=== PATIENT | female | born 1955 | race Two or more races ===

== ENCOUNTER 2020-07-13 16:36 | Inpatient (IN) | payer MEDICARE, OTHER ==
[~2020-07-13] VITALS: Ht 157.5 cm; Wt 77.1 kg
[2020-07-13 17:20] VITALS: BP 135/80
--- NOTE | 2020-07-13 17:41 | NUR ---
ED Nurse Note: Walked in from home A/o/4. FStates feeling short of breath for 4 days. Pt said a nurse visited her at home today and checked her SPO2 and it was 88%. She was told to go straight to the ER. She states that her entire family that she lives with has tested positive for COVID. She is resting comfortably on 4 LNC stating that she feels much better with it on. Vital signs stable as documented. labs sent, misty palm sent, ekg done.
[2020-07-13 17:55] LABS: BASOPHILS % (AUTO) 0.7 % (0.0-2.0); EOSINOPHILS % (AUTO) 0.5 % (0.0-3.0); HEMATOCRIT 43.7 % (37.0-47.0); HEMOGLOBIN 14.9 G/DL (12.0-16.0); LYMPHOCYTES % (AUTO) 15.4 % (20.0-45.0); MEAN CORPUSCULAR VOLUME 90 FL (80-99); MONOCYTES % (AUTO) 6.4 % (1.0-10.0); NEUTROPHILS % (AUTO) 77.1 % (45.0-75.0); PLATELET COUNT 395 K/UL (150-450); RED BLOOD COUNT 4.88 M/UL (4.20-5.40); RED CELL DISTRIBUTION WIDTH 13.1 % (11.6-14.8); WHITE BLOOD COUNT 10.1 K/UL (4.8-10.8)
[2020-07-13 18:40] LABS: APPEARANCE,URINE CLEAR; BILIRUBIN, URINE NEGATIVE (NEGATIVE); COLOR,URINE PALE YELLOW; GLUCOSE, URINE (UA) NEGATIVE (NEGATIVE); KETONES,URINE NEGATIVE (NEGATIVE); LEUKOCYTE ESTERASE ,URINE NEGATIVE (NEGATIVE); NITRITE,URINE NEGATIVE (NEGATIVE); PH,URINE 8 (4.5-8.0); PROTEIN,URINE NEGATIVE (NEGATIVE); UROBILINOGEN,URINE NORMAL MG/DL (0.0-1.0)
[2020-07-13 18:48] LABS: ANION GAP 9 mmol/L (5-15); BLOOD UREA NITROGEN 11 mg/dL (7-18); CALCIUM 8.8 MG/DL (8.5-10.1); CARBON DIOXIDE 28 MMOL/L (21-32); CHLORIDE 102 MMOL/L (98-107); CREATININE 0.6 MG/DL (0.55-1.30); POTASSIUM 4.8 MMOL/L (3.5-5.1); SODIUM 139 MMOL/L (136-145)
[2020-07-13 19:05] LABS: ALANINE AMINOTRANSFERASE 63 U/L (12-78); ALBUMIN 2.9 G/DL (3.4-5.0); ALBUMIN/GLOBULIN RATIO 0.7 (1.0-2.7); ALKALINE PHOSPHATASE 111 U/L (46-116); ASPARTATE AMINO TRANSFERASE 48 U/L (15-37); BILIRUBIN,TOTAL 0.5 MG/DL (0.2-1.0); FERRITIN 703 NG/ML (8-388); LACTATE DEHYDROGENASE 509 U/L (81-234)
--- NOTE | 2020-07-13 19:06 | NUR ---
HAND-OFF: Report given to Saray MEDINA.
[2020-07-13] MEDS ORDERED: dexAMETHasone 10mg/ml Inj IV ONE (19:15)
[2020-07-13] MEDS ORDERED: Enoxaparin 40mg Inj SUBQ ONE (19:15)
--- NOTE | 2020-07-13 19:26 | NUR ---
ED Nurse Note: RT at bedside providing breathing treatment. Patient in stable condition, provided with extra blankets, VSS. No acute distress noted.
[2020-07-13 19:27] VITALS: BP 174/89
[2020-07-13] MEDS: Albuterol/Ipratropium 3ml neb HHN SCH (19:28)
[2020-07-13] MEDS ORDERED: cefTRIAXone 1 GM in NS 55 ML IVPB ONE (20:00)
[2020-07-13] MEDS ORDERED: Azithromycin 500 MG in NS 275 ML IV ONE (20:00)
[2020-07-13 20:30] VITALS: BP 136/61
--- NOTE | 2020-07-13 21:55 | NUR ---
ED Nurse Note: Report given to ADAM Sommer.
[2020-07-13 22:00] VITALS: BP 128/64
--- NOTE | 2020-07-13 22:05 | NUR ---
TRANSFER TO FLOOR: Patient transferred to med surg as ordered, per ERMD. Report given to ADAM Sommer. Patient transported in stable condition along with belongings.
--- NOTE | 2020-07-13 22:14 | Emergency Room Report ---
History of Present Illness General Chief Complaint: Dyspnea/Respdistress Source: Patient Present Illness HPI 64-year-old female presents for evaluation. Referred from PMD clinic. Cough and congestion x1 week. Family members are Covid positive. O2 sat 80s in triage. History of asthma. Denies chest pain. No other aggravating relieving factors. Denies any other associated symptoms Allergies: Coded Allergies: No Known Allergies (Unverified , 07/13/20) COVID-19 Screening Contact w/high risk pt: No Experienced COVID-19 symptoms?: Yes COVID-19 Testing performed WELFARE SPECIALIST: No Patient History Past Medical History: HTN, COPD Past Surgical History: none Pertinent Family History: none Social History: Denies: smoking, alcohol use, drug use Now: No Immunizations: UTD Reviewed Nursing Documentation: PMH: Agreed; PSxH: Agreed Nursing Documentation-PMH Past Medical History: No Stated History Hx Hypertension: Yes Review of Systems All Other Systems: negative except mentioned in HPI Physical Exam Vital Signs Date Time Temp Pulse Resp B/P (MAP) Pulse Ox O2 Delivery O2 Flow Rate FiO2 07/13/20 17:11 99.0 88 30 149/85 (106) 85 Room Air 07/13/20 17:20 4.0 07/13/20 19:28 36 Sp02 EP Interpretation: reviewed, normal General Appearance: no apparent distress, alert, GCS 15, non-toxic Head: normocephalic, atraumatic Eyes: bilateral eye normal inspection, bilateral eye PERRL ENT: hearing grossly normal, normal pharynx, no angioedema, normal voice Neck: full range of motion, supple/symm/no masses Respiratory: chest non-tender, speaking full sentences, wheezing Cardiovascular #1: regular rate, rhythm, no edema Cardiovascular #2: 2+ carotid (R), 2+ carotid (L), 2+ radial (R), 2+ radial (L), 2+ dorsalis pedis (R), 2+ dorsalis pedis (L) Gastrointestinal: normal bowel sounds, non tender, soft, non-distended, no guarding, no rebound Rectal: deferred Genitourinary: normal inspection, no CVA tenderness Musculoskeletal: back normal, normal range of motion, gait/station normal, non- tender Neurologic: alert, motor strength/tone normal, oriented x3, sensory intact, responsive, speech normal Psychiatric: judgement/insight normal, memory normal, mood/affect normal, no suicidal/homicidal ideation Reflexes: 3+ bicep (R), 3+ bicep (L), 3+ tricep (R), 3+ tricep (L), 3+ knee (R), 3+ knee (L) Skin: no rash Lymphatic: no adenopathy Procedures Critical Care Time Critical Care Time i. I feel this is a highly complex case requiring extensive working including EKG/Rhythm strip, Xray/CT/US, Blood/urine lab work, repeat exams while in ED, and administration of strong opiates/narcotics for pain control, admission to hospital or close patient follow up. Total time: 45 min bedside evaluation and treatment excludes procedures (EKG). Reason for critical care: respiratory distress, Covid Possible complications: hypotension, hypertension, VT, shock, arrhythmias, metabolic acidosis, end organ damage, respiratory failure. Interventions: Labs, EKG, chest x-ray, cardiac monitoring, rapid Covid, nebulizer treatments, antibiotics, dexamethasone, Lovenox Course: Patient presenting with shortness of breath. O2 sat 80s. Chest x-ray shows bilateral patchy infiltrates. Covid positive. Given breathing treatments. Respiratory status improved. O2 sats improved. Given antibiotics. Given dexamethasone and Lovenox Consultations: nursing staff, EMS, family Performed by: Dr Parsons Tolerated well condition = serious j. because of unstable vital signs this patient had a condition that could potentially threaten life or limb. I feel this is a critical patient who required my full attention while patient was considered critical. Total Critic al Care Time excluding procedures was greater than 45 minutes Medical Decision Making Diagnostic Impression: Primary Impression: Respiratory distress Additional Impression: COVID-19 ER Course Hospital Course 64-year-old female presents with shortness of breath cough. Low O2 sat Differential diagnoses include: Pneumonia, CHF exacerbation, pneumothorax, fluid overload Clinical course Patient placed on stretcher. In isolation. I wore full PPE. 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 After initial history and physical, I ordered labs, IV fluids, EKG, chest x-ray, blood cultures, UA. Patient placed on oxygen with O2 sats improved. Rapid Covid positive Breathing treatment started Labs -leukocytosis noted, hemoglobin/hematocrit stable, electrolytes okay, inflammatory markers elevated, D-dimer EKGnormal sinus rhythm no acute ischemic changes interpreted by me CXR -bilateral patchy opacities Given broad-spectrum antibiotics. O2 sats improved after breathing treatments. Given dexamethasone. Given Lovenox. Case discussed with Dr. Guerin and he agreed to the patient to his service for further care and support I feel this is a highly complex case requiring extensive working including EKG/Rhythm strip, Xray/CT/US, Blood/urine lab work, repeat exams while in ED, and administration of strong opiates/narcotics for pain control, admission to hospital or close patient follow up. Diagnosis -respiratory distress, COVID 19 Patient admitted to telemetry in serious condition Laboratory Tests Test 07/13/20 17:27 07/13/20 18:30 White Blood Count 10.1 K/UL (4.8-10.8) Red Blood Count 4.88 M/UL (4.20-5.40) Hemoglobin 14.9 G/DL (12.0-16.0) Hematocrit 43.7 % (37.0-47.0) Mean Corpuscular Volume 90 FL (80-99) Mean Corpuscular Hemoglobin 30.6 PG (27.0-31.0) Mean Corpuscular Hemoglobin Concent 34.2 G/DL (32.0-36.0) Red Cell Distribution Width 13.1 % (11.6-14.8) Platelet Count 395 K/UL (150-450) Mean Platelet Volume 5.3 FL (6.5-10.1) L Neutrophils (%) (Auto) 77.1 % (45.0-75.0) H Lymphocytes (%) (Auto) 15.4 % (20.0-45.0) L Monocytes (%) (Auto) 6.4 % (1.0-10.0) Eosinophils (%) (Auto) 0.5 % (0.0-3.0) Basophils (%) (Auto) 0.7 % (0.0-2.0) Prothrombin Time 10.7 SEC (9.30-11.50) Prothromb Time International Ratio 1.0 (0.9-1.1) Activated Partial Thromboplast Time 26 SEC (23-33) D-Dimer 1.18 mg/L FEU (0.00-0.49) H Sodium Level 139 MMOL/L (136-145) Potassium Level 4.8 MMOL/L (3.5-5.1) Chloride Level 102 MMOL/L (98-107) Carbon Dioxide Level 28 MMOL/L (21-32) Anion Gap 9 mmol/L (5-15) Blood Urea Nitrogen 11 mg/dL (7-18) Creatinine 0.6 MG/DL (0.55-1.30) Estimat Glomerular Filtration Rate > 60 mL/min (>60) Glucose Level 98 MG/DL (74-106) Lactic Acid Level 2.00 mmol/L (0.4-2.0) Calcium Level 8.8 MG/DL (8.5-10.1) Ferritin 703 NG/ML (8-388) H Total Bilirubin 0.5 MG/DL (0.2-1.0) Aspartate Amino Transf (AST/SGOT) 48 U/L (15-37) H Alanine Aminotransferase (ALT/SGPT) 63 U/L (12-78) Alkaline Phosphatase 111 U/L (46-116) Lactate Dehydrogenase 509 U/L (81-234) H Troponin I 0.004 ng/mL (0.000-0.056) C-Reactive Protein, Quantitative 8.0 mg/dL (0.00-0.90) H Pro-B-Type Natriuretic Peptide 220 pg/mL (0-125) H Total Protein 7.3 G/DL (6.4-8.2) Albumin 2.9 G/DL (3.4-5.0) L Globulin 4.4 g/dL Albumin/Globulin Ratio 0.7 (1.0-2.7) L Lipase 154 U/L (73-393) Urine Color Pale yellow Urine Appearance Clear Urine pH 8 (4.5-8.0) Urine Specific [place] 1.010 (1.005-1.035) Urine Protein Negative (NEGATIVE) Urine Glucose (UA) Negative (NEGATIVE) Urine Ketones Negative (NEGATIVE) Urine Blood 1+ (NEGATIVE) H Urine Nitrite Negative (NEGATIVE) Urine Bilirubin Negative (NEGATIVE) Urine Urobilinogen Normal MG/DL (0.0-1.0) Urine Leukocyte Esterase Negative (NEGATIVE) Urine RBC 2-4 /HPF (0 - 2) H Urine WBC 0-2 /HPF (0 - 2) Urine Squamous Epithelial Cells Moderate /LPF (NONE/OCC) H Urine Bacteria Few /HPF (NONE) EKG Diagnostic Results Troponin ordered: Yes Rate: normal Rhythm: NSR ST Segments: no acute changes ASA given to the pt in ED: No Rhythm Strip Diag. Results EP Interpretation: yes Rhythm: NSR, no PVC's, no ectopy Chest X-Ray Diagnostic Results Chest X-Ray Diagnostic Results : Chest X-Ray Ordered: Yes # of Views/Limited/Complete: 1 View Indication: Shortness of Breath EP Interpretation: Yes Interpretation: no pneumothorax, other - bilateral patchy opacities Impression: Other - Covid pneumonia Electronically Signed by: Electronically signed by Ryder Parsons MD Last Vital Signs Date Time Temp Pulse Resp B/P (MAP) Pulse Ox O2 Delivery O2 Flow Rate FiO2 07/13/20 20:30 88 19 136/61 96 Nasal Cannula 4.0 07/13/20 19:28 36 07/13/20 17:20 99.0 Status: improved Disposition: ADMITTED INPATIENT Condition: Serious Scripts No Active Prescriptions or Reported Meds Referrals: Gregory Guerin MD (PCP) Ryder Parsons MD Jul 13, 2020 22:14
--- NOTE | 2020-07-13 22:15 | NUR ---
NURSES NOTE: Pt received to 4E at 2150 from ER. No outward s/s of distress noted. Breathing pattern is even and unlabored on 4 L nasal canula. A/OX4, patient denies discomfort or pain at this time. Head to toe assessment performed. Skin is clear and intact. L AC 20g IV is intact, patent, infusing antibiotic by gravity without incident. Phone call placed to receive admitting orders. Waiting for a call back. Patient oriented to room. Bed at lowest level. Call light within reach. Pt will continue to be monitored.
[2020-07-14] VITALS: BP 142/71
[2020-07-14 04:00] VITALS: BP 144/72
--- NOTE | 2020-07-14 07:42 | NUR ---
NURSE HAND-OFF: Important Events on Shift: [Was not able to process Remdesivir. Must be processed by infectious disease consult Dr. Dr Guerin made aware. ] Patient Status: [stable] Diet: [regular] Pending Orders: [none] Pending Results/Labs:[none] Pending MD notification:[none] Latest Vital Signs: Temperature 98.7 , Pulse 90 , B/P 144 /72 , Respiratory Rate 18 , O2 SAT 97 , Nasal Cannula, O2 Flow Rate 4.0 . Vital Sign Comment: [wnl] Latest Adame Fall Score: 20 Fall Risk: Low Risk Safety Measures: Call light Within Reach, Bed Alarm , Side Rails Side Rails x2, Bed position Low and Locked. Fall Precautions: Yellow Socks Patient Fall Education Report given to [ADAM Duncan].
[2020-07-14 08:00] VITALS: BP 153/84
--- NOTE | 2020-07-14 08:12 | NUR ---
NURSE NOTES: Patient awake and alert respirations unlabored.02on at 4L N/C.patient state she is feeling better.sitting up in bed and eating breakfast.Call light within reach.
[2020-07-14] MEDS: Enoxaparin 30mg Inj SUBQ SCH ×2 (08:34→20:24)
--- NOTE | 2020-07-14 09:28 | Diagnostic Imaging Report ---
Indication: Shortness of breath Technique: XRAY Chest 1v Comparison: None Findings: Patchy bilateral infiltrates are noted with a dominant peripheral distribution. There is no pleural effusion or pneumothorax. Heart appears enlarged. Mediastinal contours are sharp. No acute osseous anomaly. IMPRESSION: Patchy bilateral infiltrates concerning for multifocal pneumonia, particularly viral pneumonia. Clinical correlation and follow-up recommended
--- NOTE | 2020-07-14 10:02 | NUR ---
RADIOLOGY NOTE: PORTABLE CHEST X-RAY COMPLETED AT 0915 HRS. FA
[2020-07-14 10:06] LABS: BASOPHILS % (AUTO) 0.5 % (0.0-2.0); EOSINOPHILS % (AUTO) 0.1 % (0.0-3.0); HEMATOCRIT 36.8 % (37.0-47.0); HEMOGLOBIN 13.1 G/DL (12.0-16.0); LYMPHOCYTES % (AUTO) 12.9 % (20.0-45.0); MEAN CORPUSCULAR VOLUME 86 FL (80-99); MONOCYTES % (AUTO) 4.9 % (1.0-10.0); NEUTROPHILS % (AUTO) 81.6 % (45.0-75.0); PLATELET COUNT 394 K/UL (150-450); RED BLOOD COUNT 4.25 M/UL (4.20-5.40); RED CELL DISTRIBUTION WIDTH 14.6 % (11.6-14.8); WHITE BLOOD COUNT 7.8 K/UL (4.8-10.8)
[2020-07-14 10:41] LABS: ANION GAP 11 mmol/L (5-15); BLOOD UREA NITROGEN 12 mg/dL (7-18); CALCIUM 8.9 MG/DL (8.5-10.1); CARBON DIOXIDE 23 MMOL/L (21-32); CHLORIDE 105 MMOL/L (98-107); CREATININE 0.7 MG/DL (0.55-1.30); POTASSIUM 3.9 MMOL/L (3.5-5.1); SODIUM 139 MMOL/L (136-145)
[2020-07-14 12:00] VITALS: BP 150/70
--- NOTE | 2020-07-14 12:00 | Consultation ---
DATE OF CONSULTATION: 07/14/2020 INFECTIOUS DISEASES CONSULTATION CONSULTING PHYSICIAN: Laura Wallace MD. REFERRING PHYSICIAN: Gregory Guerin MD. REASON FOR CONSULTATION: COVID-19 pneumonia. HISTORY OF PRESENTING ILLNESS: This is a 64-year-old lady with history of hypertension, asthma, who comes in with cough and shortness of breath. She denies any fever or chills. She was found to be COVID-19 positive. Her family members are also COVID-19 positive. An Infectious Diseases consultation has been obtained for antibiotics. PAST MEDICAL HISTORY: 1. History of hypertension. 2. Asthma. SOCIAL HISTORY: She does not smoke. She drinks alcohol socially. No history of drug use. FAMILY HISTORY: Noncontributory. REVIEW OF SYSTEMS: RESPIRATORY: No fever or chills. She has cough. She has shortness of breath. No chest pain. CARDIAC: No chest pain. No palpitation. No dizziness. No syncope. GASTROINTESTINAL: No nausea. No vomiting. No abdominal pain or diarrhea. MUSCULOSKELETAL: She denies any headaches or body pain. MEDICATIONS: As an inpatient, she is on dexamethasone, Mylanta, Tylenol, enoxaparin, Protonix. ALLERGIES: No known drug allergies. PHYSICAL EXAMINATION: VITAL SIGNS: Temperature of 98.7, T-max of 99, pulse of 90, respiratory rate 18, blood pressure 144/72, O2 saturation of 97% on 4 liters of oxygen. Examination deferred due to COVID-19. LABORATORY DATA: White count 7.8, hemoglobin 13.1, hematocrit 36.8, MCV 86, platelet count 394. Sodium 139, potassium 3.9, chloride 105, bicarb 23, BUN 12, creatinine 0.7, glucose 161, calcium 8.9. Total bilirubin 0.5. AST 48, ALT 63, alkaline phosphatase 111. LDH 509. Troponin 0.004. C-reactive protein of 8. Total protein 7.3, albumin 2.9, lipase of 154. UA is showing 0 to 2 white cells. COVID-19 test is positive. Chest x-ray showing patchy bilateral infiltrates concerning for multifocal pneumonia. ASSESSMENT: This is a 64-year-old lady with history of hypertension and asthma, who comes in with cough and shortness of breath and is found to have, 1. COVID-19 pneumonia. 2. She is on 4 liters of oxygen with 97% saturation. 3. Hypertension. 4. Asthma. PLAN: 1. Continue Decadron. She is on day #2. 2. We will start the patient on remdesivir. 3. Continue isolation. 4. We will follow up the patient clinically. I would like to thank, Dr. Guerin for this consultation. Laura Wallace M.D. DR: GOMEZ JOB#: [id number] CC: Gregory Guerin MD.; Fax#: [phone]
--- NOTE | 2020-07-14 13:11 | History & Physical ---
History and Physical History & Physicial 64-year-old lady with history of hypertension, asthma, presents with cough and shortness of breath. She denies any fever or chills. She was found to be COVID-19 positive. She was noted to be hypoxemic by the home health nurse and was directed to the ER Her family members are also COVID-19 positive. ER notes reviewed and patient now admitted to isolation PAST MEDICAL HISTORY: 1. History of hypertension. 2. Asthma. SOCIAL HISTORY: She does not smoke. She drinks alcohol socially. No history of drug use. Retired FAMILY HISTORY: Noncontributory. REVIEW OF SYSTEMS: all 10 points reviewed and discussed MEDICATIONS: reviewed and reconciled. ALLERGIES: No known drug allergies. PHYSICAL EXAMINATION: Examination deferred due to COVID-19. Laboratory Tests Test 07/13/20 17:27 07/13/20 18:30 07/14/20 08:35 White Blood Count 10.1 K/UL (4.8-10.8) 7.8 K/UL (4.8-10.8) Red Blood Count 4.88 M/UL (4.20-5.40) 4.25 M/UL (4.20-5.40) Hemoglobin 14.9 G/DL (12.0-16.0) 13.1 G/DL (12.0-16.0) Hematocrit 43.7 % (37.0-47.0) 36.8 % (37.0-47.0) L Mean Corpuscular Volume 90 FL (80-99) 86 FL (80-99) Mean Corpuscular Hemoglobin 30.6 PG (27.0-31.0) 30.7 PG (27.0-31.0) Mean Corpuscular Hemoglobin Concent 34.2 G/DL (32.0-36.0) 35.5 G/DL (32.0-36.0) Red Cell Distribution Width 13.1 % (11.6-14.8) 14.6 % (11.6-14.8) Platelet Count 395 K/UL (150-450) 394 K/UL (150-450) Mean Platelet Volume 5.3 FL (6.5-10.1) L 5.0 FL (6.5-10.1) L Neutrophils (%) (Auto) 77.1 % (45.0-75.0) H 81.6 % (45.0-75.0) H Lymphocytes (%) (Auto) 15.4 % (20.0-45.0) L 12.9 % (20.0-45.0) L Monocytes (%) (Auto) 6.4 % (1.0-10.0) 4.9 % (1.0-10.0) Eosinophils (%) (Auto) 0.5 % (0.0-3.0) 0.1 % (0.0-3.0) Basophils (%) (Auto) 0.7 % (0.0-2.0) 0.5 % (0.0-2.0) Prothrombin Time 10.7 SEC (9.30-11.50) Prothromb Time International Ratio 1.0 (0.9-1.1) Activated Partial Thromboplast Time 26 SEC (23-33) D-Dimer 1.18 mg/L FEU (0.00-0.49) H Sodium Level 139 MMOL/L (136-145) 139 MMOL/L (136-145) Potassium Level 4.8 MMOL/L (3.5-5.1) 3.9 MMOL/L (3.5-5.1) Chloride Level 102 MMOL/L (98-107) 105 MMOL/L (98-107) Carbon Dioxide Level 28 MMOL/L (21-32) 23 MMOL/L (21-32) Anion Gap 9 mmol/L (5-15) 11 mmol/L (5-15) Blood Urea Nitrogen 11 mg/dL (7-18) 12 mg/dL (7-18) Creatinine 0.6 MG/DL (0.55-1.30) 0.7 MG/DL (0.55-1.30) Estimat Glomerular Filtration Rate > 60 mL/min (>60) > 60 mL/min (>60) Glucose Level 98 MG/DL (74-106) 161 MG/DL (74-106) H Lactic Acid Level 2.00 mmol/L (0.4-2.0) Calcium Level 8.8 MG/DL (8.5-10.1) 8.9 MG/DL (8.5-10.1) Ferritin 703 NG/ML (8-388) H Total Bilirubin 0.5 MG/DL (0.2-1.0) Aspartate Amino Transf (AST/SGOT) 48 U/L (15-37) H Alanine Aminotransferase (ALT/SGPT) 63 U/L (12-78) Alkaline Phosphatase 111 U/L (46-116) Lactate Dehydrogenase 509 U/L (81-234) H Troponin I 0.004 ng/mL (0.000-0.056) C-Reactive Protein, Quantitative 8.0 mg/dL (0.00-0.90) H Pro-B-Type Natriuretic Peptide 220 pg/mL (0-125) H Total Protein 7.3 G/DL (6.4-8.2) Albumin 2.9 G/DL (3.4-5.0) L Globulin 4.4 g/dL Albumin/Globulin Ratio 0.7 (1.0-2.7) L Lipase 154 U/L (73-393) Urine Color Pale yellow Urine Appearance Clear Urine pH 8 (4.5-8.0) Urine Specific [place] 1.010 (1.005-1.035) Urine Protein Negative (NEGATIVE) Urine Glucose (UA) Negative (NEGATIVE) Urine Ketones Negative (NEGATIVE) Urine Blood 1+ (NEGATIVE) H Urine Nitrite Negative (NEGATIVE) Urine Bilirubin Negative (NEGATIVE) Urine Urobilinogen Normal MG/DL (0.0-1.0) Urine Leukocyte Esterase Negative (NEGATIVE) Urine RBC 2-4 /HPF (0 - 2) H Urine WBC 0-2 /HPF (0 - 2) Urine Squamous Epithelial Cells Moderate /LPF (NONE/OCC) H Urine Bacteria Few /HPF (NONE) ASSESSMENT: Hypertension cough hypoxemia COVID pneumonia shortness of breath PLAN care noted IV antibiotics respiratory care IV decadron supportive care oxygen therapy prognosis guarded resume home meds impression, plan, and exam edited and reviewed in detail care discussed with Gregory Grier MD Jul 14, 2020 13:11
[2020-07-14] MEDS ORDERED: Loading Dose:Remdesivir 200mg/NS 210ml IV SCH ×2 (15:00)
--- NOTE | 2020-07-14 15:44 | NUR ---
CASE MANAGEMENT:INITIAL REVIEW 64 YR OLD FEMALE PRESENTED TO ED FROM CLINIC CC;DYSPNEA. RESPIRATORY DISTRESS. SI;WEAKNESS. COVID PNEUMONIA. 99.0 89 30 174/89 96% 4L NC FERRITIN 703 AST 48 CRP 8.0 NBP 220 ALB 2.9 D-DIMER 1.18 UA+ BLOOD, RBC, SQUAMOUS EPITH CELLS COVID RAPID ~ POSITIVE CXR ~ Patchy bilateral infiltrates concerning for multifocal pneumonia, particularly viral pneumonia. Clinical correlation and follow-up recommended IS;IVF NS BOLUS DUO NEB HHN DECADRON IV LOVENOX SQ ROCEPHIN IV ZITHROMAX IV ADMITTED TO MED SURG MED SURG STATUS DCP;PATIENT IS FROM HOME
[2020-07-14 16:00] VITALS: BP 150/70
--- NOTE | 2020-07-14 17:04 | Diagnostic Imaging Report ---
. Indication: Reason For Exam: SOB Technique: Single AP view of the chest. Comparison: Chest radiograph dated 07/13/2020 Findings: The cardiomediastinal silhouette is unchanged in appearance. Worsening aeration of the lungs with increasing diffuse interstitial opacities and patchy airspace opacities. Persistent multifocal airspace consolidation. No pneumothorax. No increasing pleural effusion. IMPRESSION: Worsening aeration of the lungs with increasing bilateral airspace disease.
--- NOTE | 2020-07-14 18:00 | NUR ---
NURSE NOTES: Patient resting,watching television,respirations unlabored.Patient state she is feeling better.call light within reach.
--- NOTE | 2020-07-14 19:25 | NUR ---
NURSE HAND-OFF: Tanna MEDINA Important Events on Shift:[Remdesivir ordered and given ] Patient Status: [stable Diet: [regular Pending Orders: [Labs 07/15/20 Pending Results/Labs:[] Pending MD notification:[] Latest Vital Signs: Temperature 98.2 , Pulse 60 , B/P 150 /70 , Respiratory Rate 20 , O2 SAT 93 , Nasal Cannula, O2 Flow Rate 4.0 . Vital Sign Comment: [] Latest Adame Fall Score: 20 Fall Risk: Low Risk Safety Measures: Call light Within Reach, Bed Alarm , Side Rails Side Rails x2, Bed position Low and Locked. Fall Precautions: Yellow Socks Patient Fall Education Report given to [].
[2020-07-14 20:00] VITALS: BP 160/82
--- NOTE | 2020-07-14 23:05 | NUR ---
NURSE NOTES: Patient received in bed, aox4, denies discomfort. With weak cough but no pain. Call light in reach. Instructed to call for assistance. Will continue with plan of care. Addendum: 07/14/20 at 2305 by TARAS CASIANO RN RN Time is 1929 upon receiving patient from AM shift.
[2020-07-15] VITALS: BP 165/79
[2020-07-15] MEDS ORDERED: QUINAPRIL HCL20 MG PO (04:19)
[2020-07-15 05:00] VITALS: BP 181/89
--- NOTE | 2020-07-15 05:37 | NUR ---
NURSE NOTES: Notified Dr. Guerin for patient's elevated BP. Asked patient what she takes for BP at home, updated medication reconciliation and Dr. Guerin made aware. Received orders from Dr. Guerin, will administer as ordered.
[2020-07-15 05:44] LABS: BASOPHILS % (AUTO) 0.6 % (0.0-2.0); EOSINOPHILS % (AUTO) 0.6 % (0.0-3.0); HEMOGLOBIN 13.2 G/DL (12.0-16.0); LYMPHOCYTES % (AUTO) 19.8 % (20.0-45.0); MEAN CORPUSCULAR VOLUME 89 FL (80-99); MONOCYTES % (AUTO) 8.5 % (1.0-10.0); NEUTROPHILS % (AUTO) 70.6 % (45.0-75.0); PLATELET COUNT 425 K/UL (150-450); RED BLOOD COUNT 4.29 M/UL (4.20-5.40); RED CELL DISTRIBUTION WIDTH 13.5 % (11.6-14.8); WHITE BLOOD COUNT 11.3 K/UL (4.8-10.8)
[2020-07-15 06:26] LABS: ALANINE AMINOTRANSFERASE 47 U/L (12-78); ALBUMIN 2.6 G/DL (3.4-5.0); ALBUMIN/GLOBULIN RATIO 0.6 (1.0-2.7); ALKALINE PHOSPHATASE 89 U/L (46-116); ANION GAP 8 mmol/L (5-15); ASPARTATE AMINO TRANSFERASE 24 U/L (15-37); BILIRUBIN,DIRECT < 0.1 MG/DL (0.0-0.3); BILIRUBIN,TOTAL 0.4 MG/DL (0.2-1.0); BLOOD UREA NITROGEN 17 mg/dL (7-18); CARBON DIOXIDE 26 MMOL/L (21-32); CHLORIDE 105 MMOL/L (98-107); CREATININE 0.7 MG/DL (0.55-1.30); POTASSIUM 4.3 MMOL/L (3.5-5.1); SODIUM 138 MMOL/L (136-145)
--- NOTE | 2020-07-15 07:40 | NUR ---
NURSE NOTES: Report received from Tanna RN, rounds made. Patient resting in semi-fowlers position in bed. [place] speaking. AOx4,calm. Respirations even/unlabored on O2 4LNC, no SOB at rest, no cough at this time. LAC saline lock in place, flushed,patent. Call light in reach, bed in lowest position,will continue to monitor.
--- NOTE | 2020-07-15 07:46 | NUR ---
NURSE HAND-OFF: Important Events on Shift:[elevated BP, new order for catapres and lisinopril] Patient Status: [stable] Diet: [Regular] Pending Orders: [] Pending Results/Labs:[] Pending MD notification:[] Latest Vital Signs: Temperature 97.3 , Pulse 87 , B/P 181 /89 , Respiratory Rate 24 , O2 SAT 95 , Nasal Cannula, O2 Flow Rate 4.0 . Vital Sign Comment: [] Latest Adame Fall Score: 20 Fall Risk: Low Risk Safety Measures: Call light Within Reach, Bed Alarm , Side Rails Side Rails x2, Bed position Low and Locked. Fall Precautions: Patient Fall Education Report given to [Tiera MEDINA].
[2020-07-15 08:00] VITALS: BP 116/57
--- NOTE | 2020-07-15 08:28 | Pulmonology Progress Note ---
Subjective Allergies: Coded Allergies: No Known Allergies (Unverified , 07/13/20) Subjective care noted remains hypoxemic on isolation Objective Last 24 Hour Vital Signs Date Time Temp Pulse Resp B/P (MAP) Pulse Ox O2 Delivery O2 Flow Rate FiO2 07/15/20 06:37 181/89 07/15/20 05:00 97.3 87 24 181/89 (119) 95 07/15/20 00:00 97.5 87 24 165/79 (107) 92 07/14/20 21:00 Nasal Cannula 4.0 07/14/20 20:00 98.1 64 24 160/82 (108) 94 07/14/20 16:00 98.2 60 20 150/70 (96) 93 07/14/20 12:00 97.9 70 18 150/70 (96) 94 07/14/20 09:00 Nasal Cannula 4.0 Intake and Output 07/14/20 07/15/20 19:00 07:00 Intake Total 400 ml 500 ml Balance 400 ml 500 ml Intake Oral 400 ml 500 ml # Voids 2 # Bowel Movements 2 Objective deferred due to COVID Microbiology Date/Time Source Procedure Growth Status 07/13/20 17:27 Nasopharynx SARS-CoV-2 RdRp Gene Assay - Final Complete 07/13/20 17:27 Blood Blood Culture - Preliminary NO GROWTH AFTER 24 HOURS Resulted 07/13/20 17:12 Blood Blood Culture - Preliminary NO GROWTH AFTER 24 HOURS Resulted Laboratory Tests 07/14/20 08:35: White Blood Count 7.8, Red Blood Count 4.25, Hemoglobin 13.1, Hematocrit 36.8L, Mean Corpuscular Volume 86, Mean Corpuscular Hemoglobin 30.7, Mean Corpuscular Hemoglobin Concent 35.5, Red Cell Distribution Width 14.6, Platelet Count 394, Mean Platelet Volume 5.0L, Neutrophils (%) (Auto) 81.6H, Lymphocytes (%) (Auto) 12.9L, Monocytes (%) (Auto) 4.9, Eosinophils (%) (Auto) 0.1, Basophils (%) (Auto) 0.5, Sodium Level 139, Potassium Level 3.9, Chloride Level 105, Carbon Dioxide Level 23, Anion Gap 11, Blood Urea Nitrogen 12, Creatinine 0.7, Estimat Glomerular Filtration Rate > 60, Glucose Level 161H, Calcium Level 8.9 07/15/20 04:00: White Blood Count 11.3H, Red Blood Count 4.29, Hemoglobin 13.2, Hematocrit 38.0, Mean Corpuscular Volume 89, Mean Corpuscular Hemoglobin 30.7, Mean Corpuscular Hemoglobin Concent 34.7, Red Cell Distribution Width 13.5, Platelet Count 425, Mean Platelet Volume 5.4L, Neutrophils (%) (Auto) 70.6, Lymphocytes (%) (Auto) 19.8L, Monocytes (%) (Auto) 8.5, Eosinophils (%) (Auto) 0.6, Basophils (%) (Auto) 0.6, Sodium Level 138, Potassium Level 4.3, Chloride Level 105, Carbon Dioxide Level 26, Anion Gap 8, Blood Urea Nitrogen 17, Creatinine 0.7, Estimat Glomerular Filtration Rate > 60, Glucose Level 99, Calcium Level 9.0, Total Bilirubin 0.4, Direct Bilirubin < 0.1, Aspartate Amino Transf (AST/SGOT) 24, Alanine Aminotransferase (ALT/SGPT) 47, Alkaline Phosphatase 89, Total Protein 7.1, Albumin 2.6L, Globulin 4.5, Albumin/Globulin Ratio 0.6L Current Medications Medications (Trade) Dose Ordered Sig/Chance Route PRN Reason Start Time Stop Time Status Last Admin Dose Admin Acetaminophen (Tylenol) 650 mg Q4H PRN ORAL Mild Pain (Pain Scale 1-3) 07/14/20 03:45 08/13/20 03:44 Acetaminophen (Tylenol) 650 mg Q4H PRN ORAL Temp >100.5 07/14/20 03:45 08/13/20 03:44 Al Hydroxide/Mg Hydroxide (Mylanta) 30 ml EVERY 4 HOURS PRN ORAL Antacid/Anti-gas 07/14/20 03:45 08/13/20 03:44 Clonidine HCl (Catapres Tab) 0.1 mg Q4H PRN ORAL For High Blood Pressure 07/15/20 05:45 10/13/20 05:44 07/15/20 06:37 Dexamethasone Sodium Phosphate (Decadron 4mg/ml vial) 6 mg DAILY IVP 07/14/20 09:00 07/22/20 08:59 07/14/20 08:35 Enoxaparin Sodium (Lovenox) 30 mg EVERY 12 HOURS SUBQ 07/14/20 09:00 10/12/20 08:59 07/14/20 20:24 Lisinopril (PriniviL) 20 mg DAILY ORAL 07/15/20 09:00 08/14/20 08:59 Pantoprazole (Protonix) 40 mg DAILY ORAL 07/14/20 09:00 08/13/20 08:59 07/14/20 08:32 Remdesivir 100 mg/ Sodium Chloride 250 ml @ 250 mls/hr Q24H IV 07/15/20 15:00 07/18/20 15:59 Assessment/Plan Assessment/Plan ASSESSMENT: Hypertension cough hypoxemia COVID pneumonia shortness of breath PLAN PRN clonidine adjust BP meds care noted IV antibiotics respiratory care IV decadron Iv remdesivir supportive care oxygen therapy prognosis guarded home meds impression, plan, and exam edited and reviewed in detail care discussed with Gregory Grier MD Jul 15, 2020 08:28
[2020-07-15] MEDS: Enoxaparin 30mg Inj SUBQ SCH ×2 (09:07→21:51)
[2020-07-15] MEDS: Lisinopril 20mg tab ORAL SCH (09:28)
--- NOTE | 2020-07-15 10:46 | Infectious Diseases Prog Note ---
Assessment/Plan Assessment/Plan A; 1. COVID19 pneumonia. 2. Hypoxemia 3. Hypertension. 4. Asthma. PLAN: 1. Continue Decadron. She is on day #3 2. Continue remdesivir. 3. Continue isolation. Subjective ROS Limited/Unobtainable: No Constitutional: Reports: no symptoms, other - feels better Respiratory: Reports: dry cough; Denies: shortness of breath Cardiovascular: Reports: no symptoms Gastrointestinal/Abdominal: Reports: no symptoms Genitourinary: Reports: no symptoms Allergies: Coded Allergies: No Known Allergies (Unverified , 07/13/20) Objective Last 24 Hour Vital Signs Date Time Temp Pulse Resp B/P (MAP) Pulse Ox O2 Delivery O2 Flow Rate FiO2 07/15/20 09:28 116/57 07/15/20 06:37 181/89 07/15/20 05:00 97.3 87 24 181/89 (119) 95 07/15/20 00:00 97.5 87 24 165/79 (107) 92 07/14/20 21:00 Nasal Cannula 4.0 07/14/20 20:00 98.1 64 24 160/82 (108) 94 07/14/20 16:00 98.2 60 20 150/70 (96) 93 07/14/20 12:00 97.9 70 18 150/70 (96) 94 Height (Feet): 5 Height (Inches): 2.00 Weight (Pounds): 170 General Appearance: no acute distress HEENT: mucous membranes moist Respiratory/Chest: lungs clear, other - oxygen by nasal cannula Cardiovascular: normal rate Abdomen: soft, non tender Extremities: no edema Neurologic/Psychiatric: alert, oriented x 3, responsive Microbiology Date/Time Source Procedure Growth Status 07/13/20 17:27 Nasopharynx SARS-CoV-2 RdRp Gene Assay - Final Complete 07/13/20 17:27 Blood Blood Culture - Preliminary NO GROWTH AFTER 24 HOURS Resulted 07/13/20 17:12 Blood Blood Culture - Preliminary NO GROWTH AFTER 24 HOURS Resulted Laboratory Tests Test 07/15/20 04:00 White Blood Count 11.3 K/UL (4.8-10.8) H Red Blood Count 4.29 M/UL (4.20-5.40) Hemoglobin 13.2 G/DL (12.0-16.0) Hematocrit 38.0 % (37.0-47.0) Mean Corpuscular Volume 89 FL (80-99) Mean Corpuscular Hemoglobin 30.7 PG (27.0-31.0) Mean Corpuscular Hemoglobin Concent 34.7 G/DL (32.0-36.0) Red Cell Distribution Width 13.5 % (11.6-14.8) Platelet Count 425 K/UL (150-450) Mean Platelet Volume 5.4 FL (6.5-10.1) L Neutrophils (%) (Auto) 70.6 % (45.0-75.0) Lymphocytes (%) (Auto) 19.8 % (20.0-45.0) L Monocytes (%) (Auto) 8.5 % (1.0-10.0) Eosinophils (%) (Auto) 0.6 % (0.0-3.0) Basophils (%) (Auto) 0.6 % (0.0-2.0) Sodium Level 138 MMOL/L (136-145) Potassium Level 4.3 MMOL/L (3.5-5.1) Chloride Level 105 MMOL/L (98-107) Carbon Dioxide Level 26 MMOL/L (21-32) Anion Gap 8 mmol/L (5-15) Blood Urea Nitrogen 17 mg/dL (7-18) Creatinine 0.7 MG/DL (0.55-1.30) Estimat Glomerular Filtration Rate > 60 mL/min (>60) Glucose Level 99 MG/DL (74-106) Calcium Level 9.0 MG/DL (8.5-10.1) Total Bilirubin 0.4 MG/DL (0.2-1.0) Direct Bilirubin < 0.1 MG/DL (0.0-0.3) Aspartate Amino Transf (AST/SGOT) 24 U/L (15-37) Alanine Aminotransferase (ALT/SGPT) 47 U/L (12-78) Alkaline Phosphatase 89 U/L (46-116) Total Protein 7.1 G/DL (6.4-8.2) Albumin 2.6 G/DL (3.4-5.0) L Globulin 4.5 g/dL Albumin/Globulin Ratio 0.6 (1.0-2.7) L Current Medications Medications (Trade) Dose Ordered Sig/Chance Route PRN Reason Start Time Stop Time Status Last Admin Dose Admin Acetaminophen (Tylenol) 650 mg Q4H PRN ORAL Mild Pain (Pain Scale 1-3) 07/14/20 03:45 08/13/20 03:44 Acetaminophen (Tylenol) 650 mg Q4H PRN ORAL Temp >100.5 07/14/20 03:45 08/13/20 03:44 Al Hydroxide/Mg Hydroxide (Mylanta) 30 ml EVERY 4 HOURS PRN ORAL Antacid/Anti-gas 07/14/20 03:45 08/13/20 03:44 Clonidine HCl (Catapres Tab) 0.1 mg Q4H PRN ORAL For High Blood Pressure 07/15/20 05:45 10/13/20 05:44 07/15/20 06:37 Dexamethasone Sodium Phosphate (Decadron 4mg/ml vial) 6 mg DAILY IVP 07/14/20 09:00 07/22/20 08:59 07/15/20 09:10 Enoxaparin Sodium (Lovenox) 30 mg EVERY 12 HOURS SUBQ 07/14/20 09:00 10/12/20 08:59 07/15/20 09:07 Lisinopril (PriniviL) 20 mg DAILY ORAL 07/15/20 09:00 08/14/20 08:59 07/15/20 09:28 Pantoprazole (Protonix) 40 mg DAILY ORAL 07/14/20 09:00 08/13/20 08:59 07/15/20 09:09 Remdesivir 100 mg/ Sodium Chloride 250 ml @ 250 mls/hr Q24H IV 07/15/20 15:00 07/18/20 15:59 Byron Foote MD Jul 15, 2020 10:46
[2020-07-15 12:00] VITALS: BP 134/71
[2020-07-15 16:00] VITALS: BP 137/72
[2020-07-15] MEDS: Maintenance Dose:Remdesivir 100mg/NS 230ml x 4 Doses IV SCH ×2 (16:02)
--- NOTE | 2020-07-15 16:42 | Diagnostic Imaging Report ---
Indication: Reason For Exam: SOB Technique: Single AP view of the chest. Comparison: Chest dated 07/14/2020. Findings: The cardiomediastinal silhouette is unchanged in appearance. Redemonstration of multifocal airspace consolidation. No pneumothorax. No increasing pleural effusion. IMPRESSION: No significant change in cardiopulmonary findings when compared to most recent examination.
--- NOTE | 2020-07-15 19:33 | NUR ---
NURSE HAND-OFF: Important Events on Shift:PCXR done (results: no change) Patient Status: stable Diet: regular Pending Orders: none Pending Results/Labs:none Pending MD notification:none Latest Vital Signs: Temperature 97.3 , Pulse 56 , B/P 137 /72 , Respiratory Rate 16 , O2 SAT 95 , Nasal Cannula, O2 Flow Rate 4.0 . Vital Sign Comment: none Latest Adame Fall Score: 35 Fall Risk: Medium Risk Safety Measures: Call light Within Reach, Bed Alarm , Side Rails Side Rails x2, Bed position Low and Locked. Fall Precautions: Yellow Socks Patient Fall Education Report given to Tanna MEDINA.
[2020-07-15 20:00] VITALS: BP 145/78
--- NOTE | 2020-07-15 20:00 | NUR ---
NURSE NOTES: Patient in bed, on o2 via NC at 3LPM, no acute distress noted. Call light in reach, instructed to use for assistance. Will continue with plan of care.
[2020-07-16] VITALS: BP 157/73
[2020-07-16 04:00] VITALS: BP 150/74
[2020-07-16 06:18] LABS: BASOPHILS % (AUTO) 0.5 % (0.0-2.0); EOSINOPHILS % (AUTO) 0.6 % (0.0-3.0); HEMATOCRIT 39.8 % (37.0-47.0); HEMOGLOBIN 13.7 G/DL (12.0-16.0); LYMPHOCYTES % (AUTO) 16.7 % (20.0-45.0); MEAN CORPUSCULAR VOLUME 90 FL (80-99); MONOCYTES % (AUTO) 6.1 % (1.0-10.0); NEUTROPHILS % (AUTO) 76.1 % (45.0-75.0); PLATELET COUNT 463 K/UL (150-450); RED BLOOD COUNT 4.42 M/UL (4.20-5.40); RED CELL DISTRIBUTION WIDTH 13.2 % (11.6-14.8); WHITE BLOOD COUNT 10.9 K/UL (4.8-10.8)
--- NOTE | 2020-07-16 06:25 | NUR ---
NURSE NOTES: Dr. Gaines updated on patient status. Made aware of bradycardia
[2020-07-16 07:00] LABS: ALANINE AMINOTRANSFERASE 52 U/L (12-78); ALBUMIN 2.8 G/DL (3.4-5.0); ALBUMIN/GLOBULIN RATIO 0.6 (1.0-2.7); ALKALINE PHOSPHATASE 93 U/L (46-116); ANION GAP 9 mmol/L (5-15); ASPARTATE AMINO TRANSFERASE 34 U/L (15-37); BILIRUBIN,DIRECT 0.2 MG/DL (0.0-0.3); BILIRUBIN,TOTAL 0.5 MG/DL (0.2-1.0); BLOOD UREA NITROGEN 17 mg/dL (7-18); CALCIUM 9.1 MG/DL (8.5-10.1); CARBON DIOXIDE 25 MMOL/L (21-32); CHLORIDE 103 MMOL/L (98-107); CREATININE 0.7 MG/DL (0.55-1.30); POTASSIUM 4.3 MMOL/L (3.5-5.1); SODIUM 137 MMOL/L (136-145)
--- NOTE | 2020-07-16 07:24 | NUR ---
NURSE HAND-OFF: Important Events on Shift:[uneventful. slightly maty at 50s, asymptomatic] Patient Status: [stable] Diet: [Regular] Pending Orders: [] Pending Results/Labs:[] Pending MD notification:[] Latest Vital Signs: Temperature 97.3 , Pulse 53 , B/P 150 /74 , Respiratory Rate 18 , O2 SAT 97 , Nasal Cannula, O2 Flow Rate 3.0 . Vital Sign Comment: [] Latest Adame Fall Score: 20 Fall Risk: Low Risk Safety Measures: Call light Within Reach, Bed Alarm , Side Rails Side Rails x2, Bed position Low and Locked. Fall Precautions: Patient Fall Education Report given to [Chyna FULLER RN].
--- NOTE | 2020-07-16 07:38 | NUR ---
NURSE NOTES: Received report from ADAM Cisse. Patient observed to be awake, alert and oriented x4. Seen lying in bed with HOB elevated, currently on NC running 3L/min. Sating well, no c/o any pain as of the moment. Patient n contact and droplet precaution d/t (+) covid. Patient IV site located on LAC 20 asymptomatic, inplace, intact, and patent. Bed placed on lowest and locked, call light placed within reach and will continue to monitor for any changes in patient's condition.
[2020-07-16 08:00] VITALS: BP 148/67
[2020-07-16] MEDS: Enoxaparin 30mg Inj SUBQ SCH ×2 (08:46→20:46)
[2020-07-16] MEDS: Lisinopril 20mg tab ORAL SCH (08:47)
--- NOTE | 2020-07-16 11:34 | Infectious Diseases Prog Note ---
Assessment/Plan Assessment/Plan antibiotics : remdesivir A 1. COVID 19 pneumonia on 3 liters O2, 95 % saturation 2. hypertension 3. asthma P 1. continue remdesivir day 3 2. continue dexamethasone day 4 3. continue isolation Subjective Constitutional: Denies: fever, chills Respiratory: Reports: shortness of breath - decreased, dry cough - decreased Gastrointestinal/Abdominal: Denies: nausea, vomiting, diarrhea Musculoskeletal: Reports: pain - in back Allergies: Coded Allergies: No Known Allergies (Unverified , 07/13/20) Objective Last 24 Hour Vital Signs Date Time Temp Pulse Resp B/P (MAP) Pulse Ox O2 Delivery O2 Flow Rate FiO2 07/16/20 09:00 Nasal Cannula 3.0 07/16/20 08:47 148/67 07/16/20 08:00 97.8 59 19 148/67 (94) 95 07/16/20 04:00 97.3 53 18 150/74 (99) 97 07/16/20 00:00 97.7 50 20 157/73 (101) 97 07/15/20 21:00 Nasal Cannula 3.0 07/15/20 20:00 97.9 52 20 145/78 (100) 94 07/15/20 16:00 97.3 56 16 137/72 (93) 95 07/15/20 12:00 99.9 61 16 134/71 (92) 98 Height (Feet): 5 Height (Inches): 2.00 Weight (Pounds): 170 Microbiology Date/Time Source Procedure Growth Status 07/13/20 17:27 Nasopharynx SARS-CoV-2 RdRp Gene Assay - Final Complete 07/13/20 17:27 Blood Blood Culture - Preliminary NO GROWTH AFTER 48 HOURS Resulted 07/13/20 17:12 Blood Blood Culture - Preliminary NO GROWTH AFTER 48 HOURS Resulted Laboratory Tests Test 07/16/20 04:15 White Blood Count 10.9 K/UL (4.8-10.8) H Red Blood Count 4.42 M/UL (4.20-5.40) Hemoglobin 13.7 G/DL (12.0-16.0) Hematocrit 39.8 % (37.0-47.0) Mean Corpuscular Volume 90 FL (80-99) Mean Corpuscular Hemoglobin 30.9 PG (27.0-31.0) Mean Corpuscular Hemoglobin Concent 34.3 G/DL (32.0-36.0) Red Cell Distribution Width 13.2 % (11.6-14.8) Platelet Count 463 K/UL (150-450) H Mean Platelet Volume 5.3 FL (6.5-10.1) L Neutrophils (%) (Auto) 76.1 % (45.0-75.0) H Lymphocytes (%) (Auto) 16.7 % (20.0-45.0) L Monocytes (%) (Auto) 6.1 % (1.0-10.0) Eosinophils (%) (Auto) 0.6 % (0.0-3.0) Basophils (%) (Auto) 0.5 % (0.0-2.0) Sodium Level 137 MMOL/L (136-145) Potassium Level 4.3 MMOL/L (3.5-5.1) Chloride Level 103 MMOL/L (98-107) Carbon Dioxide Level 25 MMOL/L (21-32) Anion Gap 9 mmol/L (5-15) Blood Urea Nitrogen 17 mg/dL (7-18) Creatinine 0.7 MG/DL (0.55-1.30) Estimat Glomerular Filtration Rate > 60 mL/min (>60) Glucose Level 92 MG/DL (74-106) Calcium Level 9.1 MG/DL (8.5-10.1) Total Bilirubin 0.5 MG/DL (0.2-1.0) Direct Bilirubin 0.2 MG/DL (0.0-0.3) Aspartate Amino Transf (AST/SGOT) 34 U/L (15-37) Alanine Aminotransferase (ALT/SGPT) 52 U/L (12-78) Alkaline Phosphatase 93 U/L (46-116) Total Protein 7.3 G/DL (6.4-8.2) Albumin 2.8 G/DL (3.4-5.0) L Globulin 4.5 g/dL Albumin/Globulin Ratio 0.6 (1.0-2.7) L Current Medications Medications (Trade) Dose Ordered Sig/Chance Route PRN Reason Start Time Stop Time Status Last Admin Dose Admin Acetaminophen (Tylenol) 650 mg Q4H PRN ORAL Mild Pain (Pain Scale 1-3) 07/14/20 03:45 08/13/20 03:44 07/16/20 08:48 Acetaminophen (Tylenol) 650 mg Q4H PRN ORAL Temp >100.5 07/14/20 03:45 08/13/20 03:44 Al Hydroxide/Mg Hydroxide (Mylanta) 30 ml EVERY 4 HOURS PRN ORAL Antacid/Anti-gas 07/14/20 03:45 08/13/20 03:44 Clonidine HCl (Catapres Tab) 0.1 mg Q4H PRN ORAL For High Blood Pressure 07/15/20 05:45 10/13/20 05:44 07/15/20 06:37 Dexamethasone Sodium Phosphate (Decadron 4mg/ml vial) 6 mg DAILY IVP 07/14/20 09:00 07/22/20 08:59 07/16/20 08:48 Enoxaparin Sodium (Lovenox) 30 mg EVERY 12 HOURS SUBQ 07/14/20 09:00 10/12/20 08:59 07/16/20 08:46 Lisinopril (PriniviL) 20 mg DAILY ORAL 07/15/20 09:00 08/14/20 08:59 07/16/20 08:47 Pantoprazole (Protonix) 40 mg DAILY ORAL 07/14/20 09:00 08/13/20 08:59 07/16/20 08:47 Remdesivir 100 mg/ Sodium Chloride 250 ml @ 250 mls/hr Q24H IV 07/15/20 15:00 07/18/20 15:59 07/15/20 16:02 Laura Wallace MD Jul 16, 2020 11:34
[2020-07-16 12:00] VITALS: BP 123/65
--- NOTE | 2020-07-16 12:13 | Pulmonology Progress Note ---
Subjective ROS Limited/Unobtainable: No Constitutional: Denies: fever, chills Gastrointestinal/Abdominal: Denies: nausea, vomiting, diarrhea Musculoskeletal: Reports: pain - in back Allergies: Coded Allergies: No Known Allergies (Unverified , 07/13/20) Subjective care noted remains hypoxemic on isolation no distress Objective Last 24 Hour Vital Signs Date Time Temp Pulse Resp B/P (MAP) Pulse Ox O2 Delivery O2 Flow Rate FiO2 07/16/20 09:00 Nasal Cannula 3.0 07/16/20 08:47 148/67 07/16/20 08:00 97.8 59 19 148/67 (94) 95 07/16/20 04:00 97.3 53 18 150/74 (99) 97 07/16/20 00:00 97.7 50 20 157/73 (101) 97 07/15/20 21:00 Nasal Cannula 3.0 07/15/20 20:00 97.9 52 20 145/78 (100) 94 07/15/20 16:00 97.3 56 16 137/72 (93) 95 Intake and Output 07/15/20 07/16/20 19:00 07:00 Intake Total 1000 ml 300 ml Balance 1000 ml 300 ml Intake Oral 1000 ml 300 ml # Voids 3 3 Objective deferred due to COVID Microbiology Date/Time Source Procedure Growth Status 07/13/20 17:27 Nasopharynx SARS-CoV-2 RdRp Gene Assay - Final Complete 07/13/20 17:27 Blood Blood Culture - Preliminary NO GROWTH AFTER 48 HOURS Resulted 07/13/20 17:12 Blood Blood Culture - Preliminary NO GROWTH AFTER 48 HOURS Resulted Laboratory Tests 07/16/20 04:15: White Blood Count 10.9H, Red Blood Count 4.42, Hemoglobin 13.7, Hematocrit 39.8, Mean Corpuscular Volume 90, Mean Corpuscular Hemoglobin 30.9, Mean Corpuscular Hemoglobin Concent 34.3, Red Cell Distribution Width 13.2, Platelet Count 463H, Mean Platelet Volume 5.3L, Neutrophils (%) (Auto) 76.1H, Lymphocytes (%) (Auto) 16.7L, Monocytes (%) (Auto) 6.1, Eosinophils (%) (Auto) 0.6, Basophils (%) (Auto) 0.5, Sodium Level 137, Potassium Level 4.3, Chloride Level 103, Carbon Dioxide Level 25, Anion Gap 9, Blood Urea Nitrogen 17, Creatinine 0.7, Estimat Glomerular Filtration Rate > 60, Glucose Level 92, Calcium Level 9.1, Total Bilirubin 0.5, Direct Bilirubin 0.2, Aspartate Amino Transf (AST/SGOT) 34, Alanine Aminotransferase (ALT/SGPT) 52, Alkaline Phosphatase 93, Total Protein 7.3, Albumin 2.8L, Globulin 4.5, Albumin/Globulin Ratio 0.6L Current Medications Medications (Trade) Dose Ordered Sig/Chance Route PRN Reason Start Time Stop Time Status Last Admin Dose Admin Acetaminophen (Tylenol) 650 mg Q4H PRN ORAL Mild Pain (Pain Scale 1-3) 07/14/20 03:45 08/13/20 03:44 07/16/20 08:48 Acetaminophen (Tylenol) 650 mg Q4H PRN ORAL Temp >100.5 07/14/20 03:45 08/13/20 03:44 Al Hydroxide/Mg Hydroxide (Mylanta) 30 ml EVERY 4 HOURS PRN ORAL Antacid/Anti-gas 07/14/20 03:45 08/13/20 03:44 Clonidine HCl (Catapres Tab) 0.1 mg Q4H PRN ORAL For High Blood Pressure 07/15/20 05:45 10/13/20 05:44 07/15/20 06:37 Dexamethasone Sodium Phosphate (Decadron 4mg/ml vial) 6 mg DAILY IVP 07/14/20 09:00 07/22/20 08:59 07/16/20 08:48 Enoxaparin Sodium (Lovenox) 30 mg EVERY 12 HOURS SUBQ 07/14/20 09:00 10/12/20 08:59 07/16/20 08:46 Lisinopril (PriniviL) 20 mg DAILY ORAL 07/15/20 09:00 08/14/20 08:59 07/16/20 08:47 Pantoprazole (Protonix) 40 mg DAILY ORAL 07/14/20 09:00 08/13/20 08:59 07/16/20 08:47 Remdesivir 100 mg/ Sodium Chloride 250 ml @ 250 mls/hr Q24H IV 07/15/20 15:00 07/18/20 15:59 07/15/20 16:02 Assessment/Plan Assessment/Plan ASSESSMENT: Hypertension cough hypoxemia COVID pneumonia shortness of breath PLAN PRN clonidine BP meds care noted IV antibiotics respiratory care IV decadron Iv remdesivir supportive care oxygen therapy and hope to dc soon prognosis guarded home meds dc once stable repeat CXR impression, plan, and exam edited and reviewed in detail care discussed with Gregory Grier MD Jul 16, 2020 12:13
--- NOTE | 2020-07-16 14:58 | NUR ---
CASE MANAGEMENT:REVIEW SI;COVID PNEUMONIA 98.2 50 20 157/73 95% 3L NC WBC 10.9 ALB 2.8 IS;REMDESIVIR IV Q24 DECADRON IV QD TYLENOL PO Q4 PRN LOVENOX SQ Q12 PROTONIX PO QD LISINOPRIL PO QD MED SURG STATUS DCP;FROM HOME
[2020-07-16] MEDS: Maintenance Dose:Remdesivir 100mg/NS 230ml x 4 Doses IV SCH ×2 (15:40)
[2020-07-16 16:00] VITALS: BP 118/61
--- NOTE | 2020-07-16 19:06 | NUR ---
NURSE HAND-OFF: Important Events on Shift:COVID MONITORING Patient Status: Stable Diet: reg Pending Orders: n.a Pending Results/Labs:n.a Pending MD notification:n.a Latest Vital Signs: Temperature 98.5 , Pulse 59 , B/P 118 /61 , Respiratory Rate 20 , O2 SAT 95 , Nasal Cannula, O2 Flow Rate 3.0 . Vital Sign Comment: stable Latest Adame Fall Score: 20 Fall Risk: Low Risk Safety Measures: Call light Within Reach, Bed Alarm , Side Rails Side Rails x2, Bed position Low and Locked. Fall Precautions: Patient Fall Education Report given to ADAM Alejandre.
--- NOTE | 2020-07-16 19:38 | NUR ---
NURSE NOTES: Received patient in bed, awake, alert, oriented x4, noted with slight cough, on NC at 3 liters/min, IV site is clean dry and intact, patient is ambulatory with steady gate. Call light is within reach, bed is lowered, locked, alarm is on, will continue to monitor for comfort and safety.
[2020-07-16 20:00] VITALS: BP 147/65
[2020-07-17] VITALS: BP 149/66
[2020-07-17 04:00] VITALS: BP 139/71
[2020-07-17 06:02] LABS: BASOPHILS % (AUTO) 0.8 % (0.0-2.0); EOSINOPHILS % (AUTO) 0.8 % (0.0-3.0); HEMATOCRIT 39.7 % (37.0-47.0); LYMPHOCYTES % (AUTO) 19.7 % (20.0-45.0); MEAN CORPUSCULAR VOLUME 86 FL (80-99); MONOCYTES % (AUTO) 6.7 % (1.0-10.0); PLATELET COUNT 504 K/UL (150-450); RED BLOOD COUNT 4.59 M/UL (4.20-5.40); RED CELL DISTRIBUTION WIDTH 14.6 % (11.6-14.8); WHITE BLOOD COUNT 11.2 K/UL (4.8-10.8)
[2020-07-17 06:12] LABS: ALANINE AMINOTRANSFERASE 56 U/L (12-78); ALBUMIN 2.6 G/DL (3.4-5.0); ALBUMIN/GLOBULIN RATIO 0.6 (1.0-2.7); ALKALINE PHOSPHATASE 85 U/L (46-116); ANION GAP 5 mmol/L (5-15); ASPARTATE AMINO TRANSFERASE 27 U/L (15-37); BILIRUBIN,DIRECT < 0.1 MG/DL (0.0-0.3); BILIRUBIN,TOTAL 0.4 MG/DL (0.2-1.0); BLOOD UREA NITROGEN 16 mg/dL (7-18); CALCIUM 8.5 MG/DL (8.5-10.1); CARBON DIOXIDE 29 MMOL/L (21-32); CHLORIDE 104 MMOL/L (98-107); CREATININE 0.7 MG/DL (0.55-1.30); POTASSIUM 4.1 MMOL/L (3.5-5.1); SODIUM 138 MMOL/L (136-145)
--- NOTE | 2020-07-17 07:00 | NUR ---
NURSE HAND-OFF: Important Events on Shift:uneventful, stable Patient Status: full Diet: regular Pending Orders: Pending Results/Labs: Pending MD notification: Latest Vital Signs: Temperature 97.0 , Pulse 59 , B/P 139 /71 , Respiratory Rate 18 , O2 SAT 98 , Nasal Cannula, O2 Flow Rate 3.0 . Vital Sign Comment: Latest Adame Fall Score: 20 Fall Risk: Low Risk Safety Measures: Call light Within Reach, Bed Alarm , Side Rails Side Rails x2, Bed position Low and Locked. Fall Precautions: Patient Fall Education Report given to Cammie RN
--- NOTE | 2020-07-17 07:19 | NUR ---
NURSE NOTES: Received report from ADAM Alejandre. Patient received asleep in bed, with HOB elevated. Currently on3L NC, no s/sx of SOB/Distress, no s/sx of pain or discomfort. Patient on contact and droplet isolation for (+) COVID. Patient with IV site located on LAC gauge 20 asymptomatic, inplace and intact. Bed placed on lowest and locked, call light within easy reach, will continue to monitor patient for any changes in condition.
[2020-07-17 08:00] VITALS: BP 138/81
--- NOTE | 2020-07-17 08:13 | General Progress Note ---
Subjective Date patient seen: Jul 16, 2020 ROS Limited/Unobtainable: No Constitutional: Reports: malaise, weakness HEENT: Reports: no symptoms Cardiovascular: Reports: no symptoms Respiratory: Reports: cough, shortness of breath Gastrointestinal/Abdominal: Reports: no symptoms Genitourinary: Reports: no symptoms Neurologic/Psychiatric: Reports: no symptoms Endocrine: Reports: no symptoms Hematologic/Lymphatic: Reports: no symptoms Allergies: Coded Allergies: No Known Allergies (Unverified , 07/13/20) All Systems: reviewed and negative except above Subjective no complaints. stable on o2. on steroids and remdesivir. ID and pulm noted Objective Last 24 Hour Vital Signs Date Time Temp Pulse Resp B/P (MAP) Pulse Ox O2 Delivery O2 Flow Rate FiO2 07/17/20 04:00 97.0 59 18 139/71 (93) 98 07/17/20 00:00 98.3 55 24 149/66 (93) 94 07/16/20 21:10 Nasal Cannula 3.0 07/16/20 20:00 98.2 87 17 147/65 (92) 94 07/16/20 16:00 98.5 59 20 118/61 (80) 95 07/16/20 12:00 98.2 55 20 123/65 (84) 97 07/16/20 09:00 Nasal Cannula 3.0 07/16/20 08:47 148/67 Intake and Output 07/16/20 07/17/20 19:00 07:00 Intake Total 1200 ml 1200 ml Balance 1200 ml 1200 ml Intake Oral 1200 ml 1200 ml # Voids 3 3 # Bowel Movements 1 1 Laboratory Tests 07/17/20 05:20: White Blood Count 11.2H, Red Blood Count 4.59, Hemoglobin 14.0, Hematocrit 39.7, Mean Corpuscular Volume 86, Mean Corpuscular Hemoglobin 30.6, Mean Corpuscular Hemoglobin Concent 35.4, Red Cell Distribution Width 14.6, Platelet Count 504H, Mean Platelet Volume 5.4L, Neutrophils (%) (Auto) 72.0, Lymphocytes (%) (Auto) 19.7L, Monocytes (%) (Auto) 6.7, Eosinophils (%) (Auto) 0.8, Basophils (%) (Auto) 0.8, Sodium Level 138, Potassium Level 4.1, Chloride Level 104, Carbon Dioxide Level 29, Anion Gap 5, Blood Urea Nitrogen 16, Creatinine 0.7, Estimat Glomerular Filtration Rate > 60, Glucose Level 108H, Calcium Level 8.5, Total Bilirubin 0.4, Direct Bilirubin < 0.1, Aspartate Amino Transf (AST/SGOT) 27, Alanine Aminotransferase (ALT/SGPT) 56, Alkaline Phosphatase 85, Total Protein 6.9, Albumin 2.6L, Globulin 4.3, Albumin/Globulin Ratio 0.6L Height (Feet): 5 Height (Inches): 2.00 Weight (Pounds): 170 General Appearance: WD/WN, alert EENT: normal ENT inspection Neck: normal alignment, supple Cardiovascular: normal rate Respiratory/Chest: chest wall non-tender, lungs clear, normal breath sounds Abdomen: normal bowel sounds, non tender, soft, no organomegaly Edema: no edema noted Pedal (L), no edema noted Pedal (R) 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
--- NOTE | 2020-07-17 08:14 | General Progress Note ---
Subjective ROS Limited/Unobtainable: No Constitutional: Reports: malaise, weakness HEENT: Reports: no symptoms Cardiovascular: Reports: no symptoms Respiratory: Reports: cough, shortness of breath Allergies: Coded Allergies: No Known Allergies (Unverified , 07/13/20) Subjective no complaints. stable on o2. on steroids and remdesivir. ID and pulm noted. stable pulm infiltrates. Objective Last 24 Hour Vital Signs Date Time Temp Pulse Resp B/P (MAP) Pulse Ox O2 Delivery O2 Flow Rate FiO2 07/17/20 04:00 97.0 59 18 139/71 (93) 98 07/17/20 00:00 98.3 55 24 149/66 (93) 94 07/16/20 21:10 Nasal Cannula 3.0 07/16/20 20:00 98.2 87 17 147/65 (92) 94 07/16/20 16:00 98.5 59 20 118/61 (80) 95 07/16/20 12:00 98.2 55 20 123/65 (84) 97 07/16/20 09:00 Nasal Cannula 3.0 07/16/20 08:47 148/67 Intake and Output 07/16/20 07/17/20 19:00 07:00 Intake Total 1200 ml 1200 ml Balance 1200 ml 1200 ml Intake Oral 1200 ml 1200 ml # Voids 3 3 # Bowel Movements 1 1 Laboratory Tests 07/17/20 05:20: White Blood Count 11.2H, Red Blood Count 4.59, Hemoglobin 14.0, Hematocrit 39.7, Mean Corpuscular Volume 86, Mean Corpuscular Hemoglobin 30.6, Mean Corpuscular Hemoglobin Concent 35.4, Red Cell Distribution Width 14.6, Platelet Count 504H, Mean Platelet Volume 5.4L, Neutrophils (%) (Auto) 72.0, Lymphocytes (%) (Auto) 19.7L, Monocytes (%) (Auto) 6.7, Eosinophils (%) (Auto) 0.8, Basophils (%) (Auto) 0.8, Sodium Level 138, Potassium Level 4.1, Chloride Level 104, Carbon Dioxide Level 29, Anion Gap 5, Blood Urea Nitrogen 16, Creatinine 0.7, Estimat Glomerular Filtration Rate > 60, Glucose Level 108H, Calcium Level 8.5, Total Bilirubin 0.4, Direct Bilirubin < 0.1, Aspartate Amino Transf (AST/SGOT) 27, Alanine Aminotransferase (ALT/SGPT) 56, Alkaline Phosphatase 85, Total Protein 6.9, Albumin 2.6L, Globulin 4.3, Albumin/Globulin Ratio 0.6L Height (Feet): 5 Height (Inches): 2.00 Weight (Pounds): 170 General Appearance: WD/WN, alert EENT: normal ENT inspection Neck: non-tender, normal alignment Cardiovascular: normal peripheral pulses, normal rate, regular rhythm Respiratory/Chest: chest wall non-tender, lungs clear, normal breath sounds, no respiratory distress Abdomen: normal bowel sounds, non tender, soft, no organomegaly Edema: no edema noted Pedal (L), no edema noted Pedal (R) Neurologic: arts manager II-XII grossly normal, alert, oriented x 3, responsive Skin: normal pigmentation Assessment/Plan Problem List: (1) COVID-19 ICD Codes: U07.1 - COVID-19 SNOMED: 734883427 (2) Respiratory distress ICD Codes: R06.03 - Acute respiratory distress SNOMED: 762241893 Status: stable Assessment/Plan: cont o2 wean as able resp care remdesivir rx steroids dvt/stress ulcer prophylaxis Robert Gaines MD Jul 17, 2020 08:14
[2020-07-17] MEDS: Lisinopril 20mg tab ORAL SCH (08:18)
[2020-07-17] MEDS: Enoxaparin 30mg Inj SUBQ SCH ×2 (08:20→20:46)
[2020-07-17 12:00] VITALS: BP 116/63
[2020-07-17] MEDS ORDERED: RIZATRIPTAN10 MG PO (12:23)
[2020-07-17] MEDS ORDERED: FLUTICASONE PRO16 G1 NASAL (13:14)
[2020-07-17] MEDS ORDERED: VENTOLIN HFA18 GM INH (13:14)
[2020-07-17] MEDS ORDERED: BREO ELLIPTA 21 EACH IH (13:14)
--- NOTE | 2020-07-17 13:41 | Infectious Diseases Prog Note ---
Assessment/Plan Assessment/Plan A; 1. COVID19 pneumonia. 2. Hypoxemia 3. Hypertension. 4. Asthma. PLAN: 1. Continue Decadron.day #5 2. Continue remdesivir. 3. Continue isolation. Subjective ROS Limited/Unobtainable: No Constitutional: Reports: no symptoms Respiratory: Reports: no symptoms Gastrointestinal/Abdominal: Reports: no symptoms Genitourinary: Reports: no symptoms Neurologic: Reports: no symptoms Allergies: Coded Allergies: No Known Allergies (Unverified , 07/13/20) Objective Last 24 Hour Vital Signs Date Time Temp Pulse Resp B/P (MAP) Pulse Ox O2 Delivery O2 Flow Rate FiO2 07/17/20 09:00 Nasal Cannula 3.0 07/17/20 08:18 138/81 07/17/20 08:00 97.7 63 19 138/81 (100) 97 07/17/20 04:00 97.0 59 18 139/71 (93) 98 07/17/20 00:00 98.3 55 24 149/66 (93) 94 07/16/20 21:10 Nasal Cannula 3.0 07/16/20 20:00 98.2 87 17 147/65 (92) 94 07/16/20 16:00 98.5 59 20 118/61 (80) 95 Height (Feet): 5 Height (Inches): 2.00 Weight (Pounds): 170 General Appearance: no acute distress HEENT: mucous membranes moist Respiratory/Chest: other - oxygen by nasal cannula Cardiovascular: normal rate Abdomen: soft, non tender Extremities: no edema Neurologic/Psychiatric: alert, oriented x 3, responsive Laboratory Tests Test 07/17/20 05:20 White Blood Count 11.2 K/UL (4.8-10.8) H Red Blood Count 4.59 M/UL (4.20-5.40) Hemoglobin 14.0 G/DL (12.0-16.0) Hematocrit 39.7 % (37.0-47.0) Mean Corpuscular Volume 86 FL (80-99) Mean Corpuscular Hemoglobin 30.6 PG (27.0-31.0) Mean Corpuscular Hemoglobin Concent 35.4 G/DL (32.0-36.0) Red Cell Distribution Width 14.6 % (11.6-14.8) Platelet Count 504 K/UL (150-450) H Mean Platelet Volume 5.4 FL (6.5-10.1) L Neutrophils (%) (Auto) 72.0 % (45.0-75.0) Lymphocytes (%) (Auto) 19.7 % (20.0-45.0) L Monocytes (%) (Auto) 6.7 % (1.0-10.0) Eosinophils (%) (Auto) 0.8 % (0.0-3.0) Basophils (%) (Auto) 0.8 % (0.0-2.0) Sodium Level 138 MMOL/L (136-145) Potassium Level 4.1 MMOL/L (3.5-5.1) Chloride Level 104 MMOL/L (98-107) Carbon Dioxide Level 29 MMOL/L (21-32) Anion Gap 5 mmol/L (5-15) Blood Urea Nitrogen 16 mg/dL (7-18) Creatinine 0.7 MG/DL (0.55-1.30) Estimat Glomerular Filtration Rate > 60 mL/min (>60) Glucose Level 108 MG/DL (74-106) H Calcium Level 8.5 MG/DL (8.5-10.1) Total Bilirubin 0.4 MG/DL (0.2-1.0) Direct Bilirubin < 0.1 MG/DL (0.0-0.3) Aspartate Amino Transf (AST/SGOT) 27 U/L (15-37) Alanine Aminotransferase (ALT/SGPT) 56 U/L (12-78) Alkaline Phosphatase 85 U/L (46-116) Total Protein 6.9 G/DL (6.4-8.2) Albumin 2.6 G/DL (3.4-5.0) L Globulin 4.3 g/dL Albumin/Globulin Ratio 0.6 (1.0-2.7) L Current Medications Medications (Trade) Dose Ordered Sig/Chance Route PRN Reason Start Time Stop Time Status Last Admin Dose Admin Acetaminophen (Tylenol) 650 mg Q4H PRN ORAL Mild Pain (Pain Scale 1-3) 07/14/20 03:45 08/13/20 03:44 07/17/20 08:19 Acetaminophen (Tylenol) 650 mg Q4H PRN ORAL Temp >100.5 07/14/20 03:45 08/13/20 03:44 Al Hydroxide/Mg Hydroxide (Mylanta) 30 ml EVERY 4 HOURS PRN ORAL Antacid/Anti-gas 07/14/20 03:45 08/13/20 03:44 Clonidine HCl (Catapres Tab) 0.1 mg Q4H PRN ORAL For High Blood Pressure 07/15/20 05:45 10/13/20 05:44 07/15/20 06:37 Dexamethasone Sodium Phosphate (Decadron 4mg/ml vial) 6 mg DAILY IVP 07/14/20 09:00 07/22/20 08:59 07/17/20 08:19 Enoxaparin Sodium (Lovenox) 30 mg EVERY 12 HOURS SUBQ 07/14/20 09:00 10/12/20 08:59 07/17/20 08:20 Lisinopril (PriniviL) 20 mg DAILY ORAL 07/15/20 09:00 08/14/20 08:59 07/17/20 08:18 Pantoprazole (Protonix) 40 mg DAILY ORAL 07/14/20 09:00 08/13/20 08:59 07/17/20 08:18 Remdesivir 100 mg/ Sodium Chloride 250 ml @ 250 mls/hr Q24H IV 07/15/20 15:00 07/18/20 15:59 07/16/20 15:40 Byron Foote MD Jul 17, 2020 13:41
[2020-07-17] MEDS: Maintenance Dose:Remdesivir 100mg/NS 230ml x 4 Doses IV SCH ×2 (15:00)
--- NOTE | 2020-07-17 15:26 | Pulmonology Progress Note ---
Subjective ROS Limited/Unobtainable: No Constitutional: Reports: no symptoms Gastrointestinal/Abdominal: Reports: no symptoms Musculoskeletal: Reports: pain - in back Allergies: Coded Allergies: No Known Allergies (Unverified , 07/13/20) All Systems: reviewed and negative except above Objective Last 24 Hour Vital Signs Date Time Temp Pulse Resp B/P (MAP) Pulse Ox O2 Delivery O2 Flow Rate FiO2 07/17/20 12:00 98.0 58 20 116/63 (80) 95 07/17/20 09:00 Nasal Cannula 3.0 07/17/20 08:18 138/81 07/17/20 08:00 97.7 63 19 138/81 (100) 97 07/17/20 04:00 97.0 59 18 139/71 (93) 98 07/17/20 00:00 98.3 55 24 149/66 (93) 94 07/16/20 21:10 Nasal Cannula 3.0 07/16/20 20:00 98.2 87 17 147/65 (92) 94 07/16/20 16:00 98.5 59 20 118/61 (80) 95 Intake and Output 07/16/20 07/17/20 19:00 07:00 Intake Total 1200 ml 1200 ml Balance 1200 ml 1200 ml Intake Oral 1200 ml 1200 ml # Voids 3 3 # Bowel Movements 1 1 Laboratory Tests 07/17/20 05:20: White Blood Count 11.2H, Red Blood Count 4.59, Hemoglobin 14.0, Hematocrit 39.7, Mean Corpuscular Volume 86, Mean Corpuscular Hemoglobin 30.6, Mean Corpuscular Hemoglobin Concent 35.4, Red Cell Distribution Width 14.6, Platelet Count 504H, Mean Platelet Volume 5.4L, Neutrophils (%) (Auto) 72.0, Lymphocytes (%) (Auto) 19.7L, Monocytes (%) (Auto) 6.7, Eosinophils (%) (Auto) 0.8, Basophils (%) (Auto) 0.8, Sodium Level 138, Potassium Level 4.1, Chloride Level 104, Carbon Dioxide Level 29, Anion Gap 5, Blood Urea Nitrogen 16, Creatinine 0.7, Estimat Glomerular Filtration Rate > 60, Glucose Level 108H, Calcium Level 8.5, Total Bilirubin 0.4, Direct Bilirubin < 0.1, Aspartate Amino Transf (AST/SGOT) 27, Alanine Aminotransferase (ALT/SGPT) 56, Alkaline Phosphatase 85, Total Protein 6.9, Albumin 2.6L, Globulin 4.3, Albumin/Globulin Ratio 0.6L Current Medications Medications (Trade) Dose Ordered Sig/Chance Route PRN Reason Start Time Stop Time Status Last Admin Dose Admin Acetaminophen (Tylenol) 650 mg Q4H PRN ORAL Mild Pain (Pain Scale 1-3) 07/14/20 03:45 08/13/20 03:44 07/17/20 08:19 Acetaminophen (Tylenol) 650 mg Q4H PRN ORAL Temp >100.5 07/14/20 03:45 08/13/20 03:44 Al Hydroxide/Mg Hydroxide (Mylanta) 30 ml EVERY 4 HOURS PRN ORAL Antacid/Anti-gas 07/14/20 03:45 08/13/20 03:44 Clonidine HCl (Catapres Tab) 0.1 mg Q4H PRN ORAL For High Blood Pressure 07/15/20 05:45 10/13/20 05:44 07/15/20 06:37 Dexamethasone Sodium Phosphate (Decadron 4mg/ml vial) 6 mg DAILY IVP 07/14/20 09:00 07/22/20 08:59 07/17/20 08:19 Enoxaparin Sodium (Lovenox) 30 mg EVERY 12 HOURS SUBQ 07/14/20 09:00 10/12/20 08:59 07/17/20 08:20 Lisinopril (PriniviL) 20 mg DAILY ORAL 07/15/20 09:00 08/14/20 08:59 07/17/20 08:18 Pantoprazole (Protonix) 40 mg DAILY ORAL 07/14/20 09:00 08/13/20 08:59 07/17/20 08:18 Remdesivir 100 mg/ Sodium Chloride 250 ml @ 250 mls/hr Q24H IV 07/15/20 15:00 07/18/20 15:59 07/17/20 15:00 Assessment/Plan Assessment/Plan Progress Note Subjective ROS Limited/Unobtainable: No Constitutional: Denies: fever, chills Gastrointestinal/Abdominal: Denies: nausea, vomiting, diarrhea Musculoskeletal: Reports: pain - in back Allergies: Coded Allergies: No Known Allergies (Unverified , 07/13/20) Subjective care noted remains hypoxemic on isolation no distress Objective Vital Signs Noted PE: Deferred Covid19 Labs noted Medications noted Assessment/Plan Assessment/Plan ASSESSMENT: Hypertension cough hypoxemia COVID pneumonia shortness of breath PLAN PRN clonidine BP meds care noted IV antibiotics respiratory care IV decadron Iv remdesivir supportive care oxygen therapy and hope to dc soon prognosis guarded home meds dc once stable repeat CXR impression, plan, and exam edited and reviewed in detail care discussed with Sunil Davis MD Jul 17, 2020 15:26
[2020-07-17 16:00] VITALS: BP 99/50
--- NOTE | 2020-07-17 18:54 | NUR ---
NURSE HAND-OFF: Important Events on Shift:covid monitoring, remdesivir Patient Status: stable Diet: reg Pending Orders: n.a Pending Results/Labs:n.a Pending MD notification:n.a Latest Vital Signs: Temperature 96.5 , Pulse 64 , B/P 99 /50 , Respiratory Rate 19 , O2 SAT 98 , Nasal Cannula, O2 Flow Rate 3.0 . Vital Sign Comment: stable Latest Adame Fall Score: 20 Fall Risk: Low Risk Safety Measures: Call light Within Reach, Bed Alarm , Side Rails Side Rails x2, Bed position Low and Locked. Fall Precautions: Patient Fall Education Report given to ADAM Alejandre.
--- NOTE | 2020-07-17 19:52 | NUR ---
NURSE NOTES: Received patient in bed, awake, alert, oriented x4, able to make her needs known. IV site is clean dry and intact. Call light is within reach, bed is lowered, locked, alarm is on, will continue to monitor for comfort and safety.
[2020-07-17 20:00] VITALS: BP 118/74
[2020-07-18] VITALS: BP 139/74
[2020-07-18 04:00] VITALS: BP 138/74
[2020-07-18 05:49] LABS: BASOPHILS % (AUTO) 1.3 % (0.0-2.0); EOSINOPHILS % (AUTO) 0.8 % (0.0-3.0); HEMOGLOBIN 13.8 G/DL (12.0-16.0); LYMPHOCYTES % (AUTO) 20.5 % (20.0-45.0); MEAN CORPUSCULAR VOLUME 87 FL (80-99); MONOCYTES % (AUTO) 7.3 % (1.0-10.0); NEUTROPHILS % (AUTO) 70.1 % (45.0-75.0); PLATELET COUNT 498 K/UL (150-450); RED BLOOD COUNT 4.46 M/UL (4.20-5.40); RED CELL DISTRIBUTION WIDTH 14.8 % (11.6-14.8); WHITE BLOOD COUNT 10.9 K/UL (4.8-10.8)
[2020-07-18 06:11] LABS: ALANINE AMINOTRANSFERASE 67 U/L (12-78); ALBUMIN 2.6 G/DL (3.4-5.0); ALBUMIN/GLOBULIN RATIO 0.6 (1.0-2.7); ALKALINE PHOSPHATASE 77 U/L (46-116); ANION GAP 4 mmol/L (5-15); ASPARTATE AMINO TRANSFERASE 34 U/L (15-37); BILIRUBIN,DIRECT 0.2 MG/DL (0.0-0.3); BILIRUBIN,TOTAL 0.3 MG/DL (0.2-1.0); BLOOD UREA NITROGEN 16 mg/dL (7-18); CALCIUM 8.7 MG/DL (8.5-10.1); CARBON DIOXIDE 30 MMOL/L (21-32); CHLORIDE 104 MMOL/L (98-107); CREATININE 0.6 MG/DL (0.55-1.30); SODIUM 138 MMOL/L (136-145)
--- NOTE | 2020-07-18 07:28 | NUR ---
NURSE HAND-OFF: Important Events on Shift:uneventful Patient Status: full Diet: regualr Pending Orders: Pending Results/Labs: Pending MD notification: Latest Vital Signs: Temperature 98.7 , Pulse 74 , B/P 138 /74 , Respiratory Rate 18 , O2 SAT 98 , Nasal Cannula, O2 Flow Rate 3.0 . Vital Sign Comment: Latest Adame Fall Score: 20 Fall Risk: Low Risk Safety Measures: Call light Within Reach, Bed Alarm , Side Rails Side Rails x2, Bed position Low and Locked. Fall Precautions: Patient Fall Education Report given to Kaley MEDINA
--- NOTE | 2020-07-18 07:45 | NUR ---
NURSE NOTES: Received report from ADAM Alejandre. patient in bed, awake, alert, oriented x4, able to make her needs known. On NC 3L, breathing even and unlabored. no acute distress note. IV site is clean dry and intact. Call light within reach, bed is lowered, locked, alarm is on, will continue to monitor.
[2020-07-18 08:00] VITALS: BP 138/71
[2020-07-18] MEDS: Lisinopril 20mg tab ORAL SCH (08:43)
[2020-07-18] MEDS: Enoxaparin 30mg Inj SUBQ SCH ×2 (08:44→20:16)
--- NOTE | 2020-07-18 09:04 | General Progress Note ---
Subjective ROS Limited/Unobtainable: No Constitutional: Reports: no symptoms HEENT: Reports: no symptoms Cardiovascular: Reports: no symptoms Respiratory: Reports: cough, shortness of breath Gastrointestinal/Abdominal: Reports: no symptoms Genitourinary: Reports: no symptoms Neurologic/Psychiatric: Reports: no symptoms Endocrine: Reports: no symptoms Hematologic/Lymphatic: Reports: no symptoms Allergies: Coded Allergies: No Known Allergies (Unverified , 07/13/20) All Systems: reviewed and negative except above Subjective wants to go home. feels "better." still on 3 liters nasal cannula. no fever or chills. no sob. on remdesivir rx Objective Last 24 Hour Vital Signs Date Time Temp Pulse Resp B/P (MAP) Pulse Ox O2 Delivery O2 Flow Rate FiO2 07/18/20 08:43 138/71 07/18/20 04:00 98.7 74 18 138/74 (95) 98 07/18/20 00:00 98.1 74 18 139/74 (95) 95 07/17/20 21:31 Nasal Cannula 3.0 07/17/20 20:00 98.7 98 18 118/74 (89) 98 07/17/20 16:00 96.5 64 19 99/50 (66) 98 07/17/20 12:00 98.0 58 20 116/63 (80) 95 Intake and Output 07/17/20 07/18/20 19:00 07:00 Intake Total 1000 ml Balance 1000 ml Intake Oral 1000 ml # Voids 4 # Bowel Movements 1 Laboratory Tests 07/18/20 04:14: White Blood Count 10.9H, Red Blood Count 4.46, Hemoglobin 13.8, Hematocrit 39.0, Mean Corpuscular Volume 87, Mean Corpuscular Hemoglobin 30.9, Mean Corpuscular Hemoglobin Concent 35.3, Red Cell Distribution Width 14.8, Platelet Count 498H, Mean Platelet Volume 5.0L, Neutrophils (%) (Auto) 70.1, Lymphocytes (%) (Auto) 20.5, Monocytes (%) (Auto) 7.3, Eosinophils (%) (Auto) 0.8, Basophils (%) (Auto) 1.3, Sodium Level 138, Potassium Level 5.0, Chloride Level 104, Carbon Dioxide Level 30, Anion Gap 4L, Blood Urea Nitrogen 16, Creatinine 0.6, Estimat Glomerular Filtration Rate > 60, Glucose Level 96, Calcium Level 8.7, Total Bilirubin 0.3, Direct Bilirubin 0.2, Aspartate Amino Transf (AST/SGOT) 34, Alanine Aminotransferase (ALT/SGPT) 67, Alkaline Phosphatase 77, Total Protein 6.8, Albumin 2.6L, Globulin 4.2, Albumin/Globulin Ratio 0.6L Height (Feet): 5 Height (Inches): 2.00 Weight (Pounds): 170 Objective General Appearance: WD/WN, alert EENT: normal ENT inspection Neck: non-tender, normal alignment Cardiovascular: normal peripheral pulses, normal rate, regular rhythm Respiratory/Chest: chest wall non-tender, lungs clear, normal breath sounds, no respiratory distress Abdomen: normal bowel sounds, non tender, soft, no organomegaly Edema: no edema noted Pedal (L), no edema noted Pedal (R) 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
[2020-07-18 12:00] VITALS: BP 111/57
[2020-07-18] MEDS: Maintenance Dose:Remdesivir 100mg/NS 230ml x 4 Doses IV SCH ×2 (14:42)
[2020-07-18 16:00] VITALS: BP 103/50
--- NOTE | 2020-07-18 16:08 | Pulmonology Progress Note ---
Subjective ROS Limited/Unobtainable: No Constitutional: Reports: no symptoms Gastrointestinal/Abdominal: Reports: no symptoms Musculoskeletal: Reports: pain - in back Allergies: Coded Allergies: No Known Allergies (Unverified , 07/13/20) All Systems: reviewed and negative except above Objective Last 24 Hour Vital Signs Date Time Temp Pulse Resp B/P (MAP) Pulse Ox O2 Delivery O2 Flow Rate FiO2 07/18/20 12:00 98.0 59 18 111/57 (75) 95 07/18/20 09:00 Nasal Cannula 3.0 07/18/20 08:43 138/71 07/18/20 08:00 98.0 60 18 138/71 (93) 95 07/18/20 04:00 98.7 74 18 138/74 (95) 98 07/18/20 00:00 98.1 74 18 139/74 (95) 95 07/17/20 21:31 Nasal Cannula 3.0 07/17/20 20:00 98.7 98 18 118/74 (89) 98 Intake and Output 07/17/20 07/18/20 19:00 07:00 Intake Total 1000 ml Balance 1000 ml Intake Oral 1000 ml # Voids 4 # Bowel Movements 1 Laboratory Tests 07/18/20 04:14: White Blood Count 10.9H, Red Blood Count 4.46, Hemoglobin 13.8, Hematocrit 39.0, Mean Corpuscular Volume 87, Mean Corpuscular Hemoglobin 30.9, Mean Corpuscular Hemoglobin Concent 35.3, Red Cell Distribution Width 14.8, Platelet Count 498H, Mean Platelet Volume 5.0L, Neutrophils (%) (Auto) 70.1, Lymphocytes (%) (Auto) 20.5, Monocytes (%) (Auto) 7.3, Eosinophils (%) (Auto) 0.8, Basophils (%) (Auto) 1.3, Sodium Level 138, Potassium Level 5.0, Chloride Level 104, Carbon Dioxide Level 30, Anion Gap 4L, Blood Urea Nitrogen 16, Creatinine 0.6, Estimat Glomerular Filtration Rate > 60, Glucose Level 96, Calcium Level 8.7, Total Bilirubin 0.3, Direct Bilirubin 0.2, Aspartate Amino Transf (AST/SGOT) 34, Alanine Aminotransferase (ALT/SGPT) 67, Alkaline Phosphatase 77, Total Protein 6.8, Albumin 2.6L, Globulin 4.2, Albumin/Globulin Ratio 0.6L Current Medications Medications (Trade) Dose Ordered Sig/Chance Route PRN Reason Start Time Stop Time Status Last Admin Dose Admin Acetaminophen (Tylenol) 650 mg Q4H PRN ORAL Mild Pain (Pain Scale 1-3) 07/14/20 03:45 08/13/20 03:44 07/17/20 08:19 Acetaminophen (Tylenol) 650 mg Q4H PRN ORAL Temp >100.5 07/14/20 03:45 08/13/20 03:44 Al Hydroxide/Mg Hydroxide (Mylanta) 30 ml EVERY 4 HOURS PRN ORAL Antacid/Anti-gas 07/14/20 03:45 08/13/20 03:44 Clonidine HCl (Catapres Tab) 0.1 mg Q4H PRN ORAL For High Blood Pressure 07/15/20 05:45 10/13/20 05:44 07/15/20 06:37 Dexamethasone Sodium Phosphate (Decadron 4mg/ml vial) 6 mg DAILY IVP 07/14/20 09:00 07/22/20 08:59 07/18/20 08:43 Enoxaparin Sodium (Lovenox) 30 mg EVERY 12 HOURS SUBQ 07/14/20 09:00 10/12/20 08:59 07/18/20 08:44 Lisinopril (PriniviL) 20 mg DAILY ORAL 07/15/20 09:00 08/14/20 08:59 07/18/20 08:43 Pantoprazole (Protonix) 40 mg DAILY ORAL 07/14/20 09:00 08/13/20 08:59 07/18/20 08:43 Assessment/Plan Assessment/Plan Progress Note Subjective ROS Limited/Unobtainable: No Constitutional: Denies: fever, chills Gastrointestinal/Abdominal: Denies: nausea, vomiting, diarrhea Musculoskeletal: Reports: pain - in back Allergies: Coded Allergies: No Known Allergies (Unverified , 07/13/20) Subjective care noted remains hypoxemic on isolation no distress Objective Vital Signs Noted PE: Deferred Covid19 Labs noted Medications noted Assessment/Plan Assessment/Plan ASSESSMENT: Hypertension cough hypoxemia COVID pneumonia shortness of breath PLAN PRN clonidine BP meds care noted IV antibiotics respiratory care IV decadron Iv remdesivir supportive care oxygen therapy and hope to dc soon prognosis guarded home meds dc once stable repeat CXR impression, plan, and exam edited and reviewed in detail care discussed with Sunil Davis MD Jul 18, 2020 16:08
--- NOTE | 2020-07-18 19:25 | NUR ---
NURSE HAND-OFF: Important Events on Shift:[plan to discharge with oxygen] Patient Status: [stable] Diet: [reg] Pending Orders: [] Pending Results/Labs:[] Pending MD notification:[] Latest Vital Signs: Temperature 98.2 , Pulse 58 , B/P 103 /50 , Respiratory Rate 18 , O2 SAT 95 , Nasal Cannula, O2 Flow Rate 3.0 . Vital Sign Comment: [stable] Latest Adame Fall Score: 20 Fall Risk: Low Risk Safety Measures: Call light Within Reach, Bed Alarm , Side Rails Side Rails x2, Bed position Low and Locked. Fall Precautions: Patient Fall Education Report given to [ADAM Van].
--- NOTE | 2020-07-18 19:37 | NUR ---
NURSE NOTES: Pt. received from ADAM Roche. Pt AAOx4, on 3L NC, breathing even and unlabored, no indications of respiratory distress, no complaints of pain. IV left AC 20g noted, intact and patent. Bed low and locked, side rails x3 up, and call light in reach.
[2020-07-18 20:00] VITALS: BP 103/63
[2020-07-19] VITALS: BP 139/72
[2020-07-19 04:00] VITALS: BP 142/72
--- NOTE | 2020-07-19 07:15 | NUR ---
NURSE HAND-OFF: Important Events on Shift:[pt. stable] Patient Status: [stable] Diet: regular Pending Orders: na Pending Results/Labs:na Pending MD notification:na Latest Vital Signs: Temperature 97.8 , Pulse 54 , B/P 142 /72 , Respiratory Rate 16 , O2 SAT 99 , Nasal Cannula, O2 Flow Rate 3.0 . Vital Sign Comment: stable Latest Adame Fall Score: 20 Fall Risk: Low Risk Safety Measures: Call light Within Reach, Bed Alarm , Side Rails Side Rails x2, Bed position Low and Locked. Fall Precautions: Patient Fall Education Report given to ADAM Jones.
--- NOTE | 2020-07-19 07:16 | NUR ---
NURSE NOTES: Report received from ADAM Van. Patient awake in bed, alert and oriented x 4, no SOB, bed in lowest position with breaks engaged and alarm on, denied any pain and discomfort at this time, IV line present on left AC, on contact and droplet precautions for COVID 19. Will continue to monitor and proceed with plan of care, call light within reach.
[2020-07-19 08:00] VITALS: BP 126/70
[2020-07-19] MEDS: Lisinopril 20mg tab ORAL SCH (08:58)
[2020-07-19] MEDS: Enoxaparin 30mg Inj SUBQ SCH ×2 (08:59→21:32)
--- NOTE | 2020-07-19 09:09 | Pulmonology Progress Note ---
Subjective ROS Limited/Unobtainable: No Constitutional: Reports: no symptoms Gastrointestinal/Abdominal: Reports: no symptoms Musculoskeletal: Reports: pain - in back Allergies: Coded Allergies: No Known Allergies (Unverified , 07/13/20) All Systems: reviewed and negative except above Subjective care noted remains hypoxemic on isolation no distress wants to go home Objective Last 24 Hour Vital Signs Date Time Temp Pulse Resp B/P (MAP) Pulse Ox O2 Delivery O2 Flow Rate FiO2 07/19/20 08:58 126/70 07/19/20 08:00 97.2 64 16 126/70 (88) 97 07/19/20 04:00 97.8 54 16 142/72 (95) 99 07/19/20 00:00 97.7 55 16 139/72 (94) 98 07/18/20 21:00 Nasal Cannula 3.0 07/18/20 20:00 97.2 60 20 103/63 (76) 98 07/18/20 16:00 98.2 58 18 103/50 (67) 95 07/18/20 12:00 98.0 59 18 111/57 (75) 95 Intake and Output 07/18/20 07/19/20 19:02 07:02 Intake Total 840 ml 360 ml Balance 840 ml 360 ml Intake Oral 840 ml Other 360 ml # Voids 4 2 # Bowel Movements 1 Objective deferred due to COVID Current Medications Medications (Trade) Dose Ordered Sig/Chance Route PRN Reason Start Time Stop Time Status Last Admin Dose Admin Acetaminophen (Tylenol) 650 mg Q4H PRN ORAL Mild Pain (Pain Scale 1-3) 07/14/20 03:45 08/13/20 03:44 07/17/20 08:19 Acetaminophen (Tylenol) 650 mg Q4H PRN ORAL Temp >100.5 07/14/20 03:45 08/13/20 03:44 Al Hydroxide/Mg Hydroxide (Mylanta) 30 ml EVERY 4 HOURS PRN ORAL Antacid/Anti-gas 07/14/20 03:45 08/13/20 03:44 Clonidine HCl (Catapres Tab) 0.1 mg Q4H PRN ORAL For High Blood Pressure 07/15/20 05:45 10/13/20 05:44 07/15/20 06:37 Dexamethasone Sodium Phosphate (Decadron 4mg/ml vial) 6 mg DAILY IVP 07/14/20 09:00 07/22/20 08:59 07/19/20 08:58 Enoxaparin Sodium (Lovenox) 30 mg EVERY 12 HOURS SUBQ 07/14/20 09:00 10/12/20 08:59 07/19/20 08:59 Lisinopril (PriniviL) 20 mg DAILY ORAL 07/15/20 09:00 08/14/20 08:59 07/19/20 08:58 Pantoprazole (Protonix) 40 mg DAILY ORAL 07/14/20 09:00 08/13/20 08:59 07/19/20 08:57 Assessment/Plan Assessment/Plan ASSESSMENT: Hypertension cough hypoxemia COVID pneumonia shortness of breath PLAN PRN clonidine BP meds care noted respiratory care IV decadron supportive care prognosis guarded home meds attempt to dc home with oxygen if able impression, plan, and exam edited and reviewed in detail care discussed with Gregory Greir MD Jul 19, 2020 09:09
[2020-07-19 12:00] VITALS: BP 132/65
--- NOTE | 2020-07-19 12:20 | Infectious Diseases Prog Note ---
Assessment/Plan Assessment/Plan antibiotics : none A 1. COVID 19 pneumonia improving on 3 liters O2, 95 % saturation s/p remdesivir 2. hypertension 3. asthma P 1. continue dexamethasone day 7 2. continue isolation Subjective Constitutional: Denies: fever, chills Respiratory: Reports: shortness of breath - less, dry cough - less Gastrointestinal/Abdominal: Denies: nausea, vomiting, diarrhea Musculoskeletal: Denies: pain Allergies: Coded Allergies: No Known Allergies (Unverified , 07/13/20) Objective Last 24 Hour Vital Signs Date Time Temp Pulse Resp B/P (MAP) Pulse Ox O2 Delivery O2 Flow Rate FiO2 07/19/20 09:00 Nasal Cannula 3.0 07/19/20 08:58 126/70 07/19/20 08:00 97.2 64 16 126/70 (88) 97 07/19/20 04:00 97.8 54 16 142/72 (95) 99 07/19/20 00:00 97.7 55 16 139/72 (94) 98 07/18/20 21:00 Nasal Cannula 3.0 07/18/20 20:00 97.2 60 20 103/63 (76) 98 07/18/20 16:00 98.2 58 18 103/50 (67) 95 Height (Feet): 5 Height (Inches): 2.00 Weight (Pounds): 170 Current Medications Medications (Trade) Dose Ordered Sig/Chance Route PRN Reason Start Time Stop Time Status Last Admin Dose Admin Acetaminophen (Tylenol) 650 mg Q4H PRN ORAL Mild Pain (Pain Scale 1-3) 07/14/20 03:45 08/13/20 03:44 07/17/20 08:19 Acetaminophen (Tylenol) 650 mg Q4H PRN ORAL Temp >100.5 07/14/20 03:45 08/13/20 03:44 Al Hydroxide/Mg Hydroxide (Mylanta) 30 ml EVERY 4 HOURS PRN ORAL Antacid/Anti-gas 07/14/20 03:45 08/13/20 03:44 Clonidine HCl (Catapres Tab) 0.1 mg Q4H PRN ORAL For High Blood Pressure 07/15/20 05:45 10/13/20 05:44 07/15/20 06:37 Dexamethasone Sodium Phosphate (Decadron 4mg/ml vial) 6 mg DAILY IVP 07/14/20 09:00 07/22/20 08:59 07/19/20 08:58 Enoxaparin Sodium (Lovenox) 30 mg EVERY 12 HOURS SUBQ 07/14/20 09:00 10/12/20 08:59 07/19/20 08:59 Lisinopril (PriniviL) 20 mg DAILY ORAL 07/15/20 09:00 08/14/20 08:59 07/19/20 08:58 Pantoprazole (Protonix) 40 mg DAILY ORAL 07/14/20 09:00 08/13/20 08:59 07/19/20 08:57 Laura Wallace MD Jul 19, 2020 12:20
--- NOTE | 2020-07-19 12:30 | NUR ---
DISCHARGE PLANNING - OXYGEN ORDER FOR HOME O2 FAXED TO [facility] P [phone] F [phone] Addendum: 07/19/20 at 1237 by PAULINE COOK LVN S/W DHEERAJ AT [facility] IN RE TO ORDER FOR O2. PER DHEERAJ, REFERRAL WILL BE REVIEWED AND SHE WILL CALL BACK IF ABLE TO SERVICE PATIENT. DHEERAJ ALSO STATED THAT NO RA ASSESSMENT NEEDED FOR DX OF COVID-19.
[2020-07-19 16:00] VITALS: BP 99/64
--- NOTE | 2020-07-19 16:10 | NUR ---
CASE MANAGEMENT:REVIEW SI;COVID PNEUMONIA 98.1 54 18 142/72 95% 3L NC IS;LISINOPRIL PO QD PROTONIX PO QD LOVENOX SQ Q12 DECADRON IV QD MED SURG STATUS DCP;FROM HOME
--- NOTE | 2020-07-19 17:55 | General Progress Note ---
Subjective ROS Limited/Unobtainable: No Constitutional: Reports: malaise, weakness HEENT: Reports: no symptoms Cardiovascular: Reports: no symptoms Respiratory: Reports: no symptoms Gastrointestinal/Abdominal: Reports: no symptoms Genitourinary: Reports: no symptoms Neurologic/Psychiatric: Reports: no symptoms Endocrine: Reports: no symptoms Hematologic/Lymphatic: Reports: no symptoms Allergies: Coded Allergies: No Known Allergies (Unverified , 07/13/20) All Systems: reviewed and negative except above Subjective wants to go home. feels "better." still on 3 liters nasal cannula. no fever or chills. no sob. on remdesivir rx Objective Last 24 Hour Vital Signs Date Time Temp Pulse Resp B/P (MAP) Pulse Ox O2 Delivery O2 Flow Rate FiO2 07/19/20 16:00 98.1 61 16 99/64 (76) 98 07/19/20 12:00 98.1 56 18 132/65 (87) 95 07/19/20 09:00 Nasal Cannula 3.0 07/19/20 08:58 126/70 07/19/20 08:00 97.2 64 16 126/70 (88) 97 07/19/20 04:00 97.8 54 16 142/72 (95) 99 07/19/20 00:00 97.7 55 16 139/72 (94) 98 07/18/20 21:00 Nasal Cannula 3.0 07/18/20 20:00 97.2 60 20 103/63 (76) 98 Intake and Output 07/18/20 07/19/20 19:00 07:00 Intake Total 840 ml 360 ml Balance 840 ml 360 ml Intake Oral 840 ml Other 360 ml # Voids 4 2 # Bowel Movements 1 Height (Feet): 5 Height (Inches): 2.00 Weight (Pounds): 170 Objective General Appearance: WD/WN, alert EENT: normal ENT inspection Neck: non-tender, normal alignment Cardiovascular: normal peripheral pulses, normal rate, regular rhythm Respiratory/Chest: chest wall non-tender, lungs clear, normal breath sounds, no respiratory distress Abdomen: normal bowel sounds, non tender, soft, no organomegaly Edema: no edema noted Pedal (L), no edema noted Pedal (R) Neurologic: medical supervisor II-XII grossly normal, alert, oriented x 3, responsive Skin: normal pigmentation Assessment/Plan Problem List: (1) COVID-19 ICD Codes: U07.1 - COVID-19 SNOMED: 709100138 (2) Respiratory distress ICD Codes: R06.03 - Acute respiratory distress SNOMED: 624451528 Status: stable Assessment/Plan: cont o2 wean as able resp care remdesivir rx steroids dvt/stress ulcer prophylaxis try to arrange home o2 Robert Gaines MD Jul 19, 2020 17:55
--- NOTE | 2020-07-19 19:28 | NUR ---
NURSE HAND-OFF: Important Events on Shift:[monitoring VS and labs, safety and comfort, awaiting discharge] Patient Status: [stable] Diet: [regular] Pending Orders: [] Pending Results/Labs:[] Pending MD notification:[] Latest Vital Signs: Temperature 98.1 , Pulse 61 , B/P 99 /64 , Respiratory Rate 16 , O2 SAT 98 , Nasal Cannula, O2 Flow Rate 3.0 . Vital Sign Comment: [] Latest Adame Fall Score: 20 Fall Risk: Low Risk Safety Measures: Call light Within Reach, Bed Alarm , Side Rails Side Rails x2, Bed position Low and Locked. Fall Precautions: Patient Fall Education Report given to [ADAM Gaines].
[2020-07-19 21:58] VITALS: BP 116/68
--- NOTE | 2020-07-19 23:30 | NUR ---
NURSE NOTES: Received patient in bed, awake, alert, oriented x4, able to make her needs known. On NC 3L, breathing even and unlabored. no s/s of acute distress noted. IV site is patent, clean dry and intact. Call light within reach, bed is lowered, locked, alarm is on, will continue to monitor.
[2020-07-20] VITALS: BP 142/66
[2020-07-20 04:00] VITALS: BP 145/77
--- NOTE | 2020-07-20 07:05 | NUR ---
HAND-OFF: Report given to ADAM Jones.
--- NOTE | 2020-07-20 07:13 | NUR ---
NURSE NOTES: Report received from ADAM Gaines. Patient awake in bed, alert and oriented x 4, no SOB, bed in lowest position with breaks engaged and alarm on, denied any pain and discomfort at this time, IV line present on left AC, on contact and droplet precautions for COVID 19. On 02 via AR. Will continue to monitor and proceed with plan of care, call light within reach.
[2020-07-20 08:00] VITALS: BP 124/72
[2020-07-20] MEDS: Enoxaparin 30mg Inj SUBQ SCH (08:35)
[2020-07-20] MEDS: Lisinopril 20mg tab ORAL SCH (08:36)
--- NOTE | 2020-07-20 09:16 | NUR ---
RD ASSESSMENT & RECOMMENDATIONS SEE CARE ACTIVITY FOR COMPLETE ASSESSMENT DAILY ESTIMATED NEEDS: Needs based on Pulmonary 56.5kg abw 25-30 kcals/kg 8710-5527 total kcals 1-1.5 g protein/kg 57-85 g total protein 25-30 mL/kg 2171-9815 total fluid mLs NUTRITION DIAGNOSIS: No nutritional diagnosis at this time. CURRENT DIET: Regular PO DIET RECOMMENDATIONS: Maintain Regular diet ADDITIONAL RECOMMENDATIONS: 1) Maintain daily wts 2) Check lytes, replete as needed
--- NOTE | 2020-07-20 10:23 | NUR ---
FABRIC WORKER LEADER NOTE ORDER FOR HOME O2 FAXED TO [facility] [phone] F [phone]
[2020-07-20 12:00] VITALS: BP 112/64
--- NOTE | 2020-07-20 12:11 | Infectious Diseases Prog Note ---
Assessment/Plan Assessment/Plan A; 1. COVID19 pneumonia. 2. Hypoxemia resolved 3. Hypertension. 4. Asthma. PLAN: 1. Discontinue Decadron. 2. Finished remdesivir course 3. Agree with discharge Subjective ROS Limited/Unobtainable: No HEENT: Reports: no symptoms Respiratory: Reports: no symptoms Gastrointestinal/Abdominal: Reports: no symptoms Genitourinary: Reports: no symptoms Allergies: Coded Allergies: No Known Allergies (Unverified , 07/13/20) Objective Last 24 Hour Vital Signs Date Time Temp Pulse Resp B/P (MAP) Pulse Ox O2 Delivery O2 Flow Rate FiO2 07/20/20 09:00 Nasal Cannula 3.0 07/20/20 08:36 144/77 07/20/20 08:00 97.7 60 16 124/72 (89) 97 07/20/20 04:00 97.7 53 16 145/77 (99) 98 07/20/20 00:00 98.0 53 16 142/66 (91) 98 07/19/20 22:02 Nasal Cannula 3.0 07/19/20 21:58 97.6 60 16 116/68 (84) 98 07/19/20 16:00 98.1 61 16 99/64 (76) 98 Height (Feet): 5 Height (Inches): 2.00 Weight (Pounds): 170 HEENT: mucous membranes moist Respiratory/Chest: lungs clear Cardiovascular: normal rate Abdomen: soft, non tender Extremities: no edema Neurologic/Psychiatric: alert, oriented x 3, responsive Current Medications Medications (Trade) Dose Ordered Sig/Chance Route PRN Reason Start Time Stop Time Status Last Admin Dose Admin Acetaminophen (Tylenol) 650 mg Q4H PRN ORAL Mild Pain (Pain Scale 1-3) 07/14/20 03:45 08/13/20 03:44 07/17/20 08:19 Acetaminophen (Tylenol) 650 mg Q4H PRN ORAL Temp >100.5 07/14/20 03:45 08/13/20 03:44 Al Hydroxide/Mg Hydroxide (Mylanta) 30 ml EVERY 4 HOURS PRN ORAL Antacid/Anti-gas 07/14/20 03:45 08/13/20 03:44 Clonidine HCl (Catapres Tab) 0.1 mg Q4H PRN ORAL For High Blood Pressure 07/15/20 05:45 10/13/20 05:44 07/15/20 06:37 Dexamethasone Sodium Phosphate (Decadron 4mg/ml vial) 6 mg DAILY IVP 07/14/20 09:00 07/22/20 08:59 07/20/20 08:36 Enoxaparin Sodium (Lovenox) 30 mg EVERY 12 HOURS SUBQ 07/14/20 09:00 10/12/20 08:59 07/20/20 08:35 Lisinopril (PriniviL) 20 mg DAILY ORAL 07/15/20 09:00 08/14/20 08:59 07/20/20 08:36 Pantoprazole (Protonix) 40 mg DAILY ORAL 07/14/20 09:00 08/13/20 08:59 07/20/20 08:36 Byron Foote MD Jul 20, 2020 12:11
--- NOTE | 2020-07-20 12:33 | Pulmonology Progress Note ---
Subjective ROS Limited/Unobtainable: No Constitutional: Denies: fever, chills Gastrointestinal/Abdominal: Reports: no symptoms Musculoskeletal: Denies: pain Allergies: Coded Allergies: No Known Allergies (Unverified , 07/13/20) All Systems: reviewed and negative except above Subjective care noted now off oxygen on isolation no distress wants to go home Objective Last 24 Hour Vital Signs Date Time Temp Pulse Resp B/P (MAP) Pulse Ox O2 Delivery O2 Flow Rate FiO2 07/20/20 12:00 98.1 59 16 112/64 (80) 96 07/20/20 09:00 Nasal Cannula 3.0 07/20/20 08:36 144/77 07/20/20 08:00 97.7 60 16 124/72 (89) 97 07/20/20 04:00 97.7 53 16 145/77 (99) 98 07/20/20 00:00 98.0 53 16 142/66 (91) 98 07/19/20 22:02 Nasal Cannula 3.0 07/19/20 21:58 97.6 60 16 116/68 (84) 98 07/19/20 16:00 98.1 61 16 99/64 (76) 98 Intake and Output 07/19/20 07/20/20 19:00 07:00 Intake Total 400 ml Balance 400 ml Intake Oral 400 ml # Voids 3 2 # Bowel Movements 1 Objective deferred due to COVID Current Medications Medications (Trade) Dose Ordered Sig/Chance Route PRN Reason Start Time Stop Time Status Last Admin Dose Admin Acetaminophen (Tylenol) 650 mg Q4H PRN ORAL Mild Pain (Pain Scale 1-3) 07/14/20 03:45 08/13/20 03:44 07/17/20 08:19 Acetaminophen (Tylenol) 650 mg Q4H PRN ORAL Temp >100.5 07/14/20 03:45 08/13/20 03:44 Al Hydroxide/Mg Hydroxide (Mylanta) 30 ml EVERY 4 HOURS PRN ORAL Antacid/Anti-gas 07/14/20 03:45 08/13/20 03:44 Clonidine HCl (Catapres Tab) 0.1 mg Q4H PRN ORAL For High Blood Pressure 07/15/20 05:45 10/13/20 05:44 07/15/20 06:37 Enoxaparin Sodium (Lovenox) 30 mg EVERY 12 HOURS SUBQ 07/14/20 09:00 10/12/20 08:59 07/20/20 08:35 Lisinopril (PriniviL) 20 mg DAILY ORAL 07/15/20 09:00 08/14/20 08:59 07/20/20 08:36 Pantoprazole (Protonix) 40 mg DAILY ORAL 07/14/20 09:00 08/13/20 08:59 07/20/20 08:36 Assessment/Plan Assessment/Plan ASSESSMENT: Hypertension cough hypoxemia COVID pneumonia shortness of breath PLAN dc home home meds stable off oxygen isolate at home impression, plan, and exam edited and reviewed in detail care discussed with Gregory Grier MD Jul 20, 2020 12:33
--- NOTE | 2020-07-20 13:18 | NUR ---
NURSE NOTES: Patient was discharged home at 1215 in stable condition, discharge paper works signed, no missing belongings, IV line and ID band removed, denies any pain or SOB upon discharge, 02 sat at 95-96% on room air, patient was instructed to continue home meds as per MD's order, pt accompanied by chelsea Willis upon discharge.
--- NOTE | 2020-07-22 08:07 | Discharge Summary ---
Discharge Summary Discharge Summary _ DATE OF ADMISSION: 07/13/2020 DATE OF DISCHARGE: 07/20/2020 DISCHARGED BY: Dr. Gaines REASON FOR ADMISSION: 64 years old female with past medical history of hypertension, asthma, was referred from primary care provider clinic due to cough and congestion for one week. Family members were tested positive for COVID. In triage pulse oximetry was 80% Patient denied chest pain. In emergency department rapid COVID-19 was positive. Laboratory work-up revealed no leukocytosis , stable hemoglobin , hematocrit and platelet count. D-dimer 118, ferritin 73, LDH 509, CRP 8. Lactic acid 2.0. Troponin negative , pro BNP 220. Urinalysis revealed no evidence of UTI. Chest x-ray showed patchy bilateral infiltrates, concerning for multifocal pneumonia. In emergency department patient received steroids ,albuterol inhaler, Lovenox ,empiric antibiotic, liter of fluid and admitted for further management. CONSULTANTS: pulmonary Dr. Apoorva SMITH specialist Dr. Wallace HOSPITAL COURSE: Patient admitted to medical surgical floor to isolation bed Supplemental oxygen provided and titrated to keep pulse oximetry above 92%. Albuterol MDI provided as needed. Patient provided with steroids and remdesivir. Anticoagulation with Lovenox initiated. Blood pressure was managed with WESLEY inhibitor ; clonidine was on board as needed for blood pressure spikes. GI prophylaxis provided. Patient was followed-up with chest x-ray. Blood culture came back negative. S patient clinically improved, she was able to be weaned to room air . Pulse oximetry was stable on room air prior to discharge Patient clinically stabilized and was ready for discharge home. Patient was instructed on self isolation at home. FINAL DIAGNOSES: COVID-19 pneumonia Hypoxemia Respiratory distress Hypertension Asthma DISCHARGE MEDICATIONS: See Medication Reconciliation list. DISCHARGE INSTRUCTIONS: Patient was discharged home Continue self-isolation as directed to complete the recommended duration . I have been assigned to dictate discharge summary for this account. I was not involved in the patient's management. Neha Kapoor NP Jul 22, 2020 08:07
== END 2020-07-20 13:15 | disposition home or self-care (01) | DRG 177 ==
LOC: EMR 18:16 → 4E 18:20 → EDBEDREQ 20:55
DX: U07.1 COVID-19 (principal); J12.89 Other viral pneumonia; R09.02 Hypoxemia; I10 Essential (primary) hypertension; J45.909 Unspecified asthma, uncomplicated
CPT/HCPCS: 36415; 71045; 80048; 80053; 81003; 82248; 82728; 83605; 83615; 83690; 83880; 84484; 85025; 85379; 85610; 85730; 86140; 87040; 93005; 94640; 96361; 96365; 96367; 96375; 99291; J3490; J7030; J7620; U0002